=== PATIENT | female | born 1935 | race Caucasian/White ===

== ENCOUNTER → 2023-08-13 08:23 | Outpatient (REF) | payer MEDICARE, BC, SELFPAY ==
[2023-08-13 09:53] LABS: AST (SGOT) 25 U/L (14-36); Albumin 4.4 g/dl (3.5-5.0); Alkaline Phosphatase 68 U/L (38-126); Blood Urea Nitrogen 20 mg/dl (7-17); Calcium 10.2 mg/dl (8.4-10.2); Carbon Dioxide 19 mmol/L (22-30); Chloride 105 mmol/L (98-107); Glucose 167 mg/dl (70-99); HDL Cholesterol 46 mg/dl; LDL Cholesterol, Calculated 147 mg/dl; Potassium 4.4 mmol/L (3.5-5.1); Sodium 135 mmol/L (135-145); Total Bilirubin 0.9 mg/dl (0.2-1.3); Total Cholesterol 272 mg/dl (50-199); Total Protein 7.5 g/dl (6.3-8.2); Triglyceride 397 mg/dl (10-149); Very Low Density Lipoprotein 79 mg/dl (0-30); eGFR > 60.00
[2023-08-13 09:57] LABS: ALT (SGPT) 18 U/L (0-35)
[2023-08-13 11:20] LABS: Digoxin < 0.4 ng/ml (0.8-2.0)
[2023-08-13 12:23] LABS: Glycohemoglobin (HgbA1c) 7.4 % (4.0-5.6)
[2023-08-13 13:44] LABS: Microalbumin, Random Urine > 57.0 mg/dl (0.6-1.7)
== END ==
LOC: REG 08:23
PROVIDERS: ATTENDING PHYSICIAN Internal Medicine
DX: E11.9 Type 2 diabetes mellitus without complications (principal); I10 Essential (primary) hypertension; I48.21 Permanent atrial fibrillation
CPT/HCPCS: 36415; 80053; 80061; 80162; 82043; 82570; 83036

== ENCOUNTER → 2023-10-06 12:16 | Outpatient (REF) | payer MEDICARE, BC, SELFPAY ==
[2023-10-06 14:17] LABS: Blood Urea Nitrogen 21 mg/dl (7-17)
== END ==
LOC: REG 12:16
PROVIDERS: ATTENDING PHYSICIAN Radiology Radiation Oncology; FAMILY PHYSICIAN Internal Medicine
DX: C50.912 Malignant neoplasm of unspecified site of left female breast (principal); Z17.0 Estrogen receptor positive status [ER+]
CPT/HCPCS: 36415; 82565; 84520

== ENCOUNTER → 2024-03-13 08:38 | Outpatient (REF) | payer MEDICARE, BC, SELFPAY ==
[2024-03-13 10:33] LABS: Glycohemoglobin (HgbA1c) 7.5 % (4.0-5.6)
[2024-03-13 10:52] LABS: ALT (SGPT) 18 U/L (0-35); AST (SGOT) 22 U/L (14-36); Albumin 4.6 g/dl (3.5-5.0); Alkaline Phosphatase 64 U/L (38-126); Blood Urea Nitrogen 16 mg/dl (7-17); Calcium 10.8 mg/dl (8.4-10.2); Carbon Dioxide 19 mmol/L (22-30); Chloride 102 mmol/L (98-107); Glucose 195 mg/dl (70-99); HDL Cholesterol 53 mg/dl; Potassium 4.4 mmol/L (3.5-5.1); Sodium 140 mmol/L (135-145); Total Bilirubin 0.9 mg/dl (0.2-1.3); Total Cholesterol 272 mg/dl (50-199); Total Protein 7.5 g/dl (6.3-8.2); eGFR > 60.00
[2024-03-13 10:58] LABS: Triglyceride 433 mg/dl (10-149)
[2024-03-13 11:50] LABS: LDL Cholesterol, Direct 130 mg/dl
== END ==
LOC: REG 08:38
PROVIDERS: ATTENDING PHYSICIAN Internal Medicine
DX: E11.9 Type 2 diabetes mellitus without complications (principal); I10 Essential (primary) hypertension
CPT/HCPCS: 36415; 80053; 80061; 83036; 83721

== ENCOUNTER 2024-06-19 11:13 | Outpatient (RCR) | payer MEDICARE, BC, SELFPAY | END 2024-06-19 23:59 | disposition home or self-care (01) | LOC: RPT 11:13 | PROVIDERS: ATTENDING PHYSICIAN Nurse Practitioner Family; FAMILY PHYSICIAN Internal Medicine | DX: R26.89 Other abnormalities of gait and mobility (principal); Z91.81 History of falling; Z73.6 Limitation of activities due to disability | CPT/HCPCS: 97110; 97112; 97162 ==

== ENCOUNTER 2024-07-05 13:26 | Outpatient (RCR) | payer MEDICARE, BC, SELFPAY | END 2024-07-06 07:30 | disposition home or self-care (01) | LOC: RPT 13:26 | PROVIDERS: ATTENDING PHYSICIAN Nurse Practitioner Family; FAMILY PHYSICIAN Internal Medicine | DX: R26.89 Other abnormalities of gait and mobility (principal); Z73.6 Limitation of activities due to disability; Z91.81 History of falling; M79.605 Pain in left leg; M79.604 Pain in right leg | CPT/HCPCS: 97110 ==

== ENCOUNTER → 2024-07-19 11:02 | Outpatient (REF) | payer MEDICARE, BC, SELFPAY ==
[2024-07-19 12:09] LABS: % Basophils 1.5 % (0-2); % Eosinophils 1.7 % (0-6); % Immature Granulocytes 0.5 % (0-0.5); % Lymphocytes 16.2 % (20.5-51.1); % Monocytes 6.5 % (1.7-9.3); % Neutrophils 73.6 % (42.2-75.2); Absolute Basophils 0.1 10^3/uL (0-0.2); Absolute Eosinophils 0.2 10^3/uL (0-0.7); Absolute Immature Granulocytes 0.1 10^3/uL (0-0.05); Absolute Lymphocytes 1.5 10^3/uL (1.2-3.4); Absolute Monocytes 0.6 10^3/uL (0.1-0.6); Hematocrit 44.9 % (37.0-47.0); Hemoglobin 15.1 g/dL (12.0-16.0); Mean Corp Hgb Conc. 33.6 g/dL (33.0-37.0); Mean Corpuscular Hgb 29.2 pg (27.0-31.0); Mean Corpuscular Volume 86.8 fL (81.0-99.0); Mean Platelet Volume 10.3 fL (7.4-10.4); Nucleated Red Blood Cells % 0 %; Platelet Count 305 10^3/uL (130-400); Red Blood Cell Count 5.17 10^6/uL (4.20-5.40); Red Cell Dist. Width 13.2 % (11.5-14.5); White Blood Cell Count 9.5 10^3/uL (4.8-10.8)
[2024-07-19 14:31] LABS: Glycohemoglobin (HgbA1c) 7.6 % (4.0-5.6)
[2024-07-19 14:58] LABS: ALT (SGPT) 18 U/L (0-35); AST (SGOT) 28 U/L (14-36); Albumin 4.7 g/dl (3.5-5.0); Alkaline Phosphatase 67 U/L (38-126); Blood Urea Nitrogen 14 mg/dl (7-17); Calcium 9.8 mg/dl (8.4-10.2); Carbon Dioxide 27 mmol/L (22-30); Chloride 98 mmol/L (98-107); Glucose 175 mg/dl (70-99); HDL Cholesterol 47 mg/dl; LDL Cholesterol, Calculated 167 mg/dl; Potassium 4.6 mmol/L (3.5-5.1); Sodium 138 mmol/L (135-145); Total Bilirubin 1.1 mg/dl (0.2-1.3); Total Cholesterol 288 mg/dl (50-199); Triglyceride 372 mg/dl (10-149); Very Low Density Lipoprotein 74 mg/dl (0-30); eGFR > 60.00
[2024-07-19 16:23] LABS: TSH 3.41 uIU/ml (0.47-4.68)
[2024-07-19 17:07] LABS: Folate > 20.0 ng/ml (2.76-20); Vitamin B12 765 pg/ml (239-931)
[2024-07-19 18:26] LABS: Microalbumin, Random Urine > 57.0 mg/dl (0.6-1.7)
== END ==
LOC: REG 11:02
PROVIDERS: ATTENDING PHYSICIAN Internal Medicine
DX: E11.9 Type 2 diabetes mellitus without complications (principal); I10 Essential (primary) hypertension; R53.82 Chronic fatigue, unspecified; R41.3 Other amnesia
CPT/HCPCS: 36415; 80053; 80061; 82043; 82570; 82607; 82746; 83036; 84443; 85025

== ENCOUNTER 2024-10-06 18:10 | Emergency (ER) | payer MEDICARE, BC, SELFPAY ==
[2024-10-06 18:13] VITALS: BP 163/98
[2024-10-06 21:12] VITALS: BMI 26.6
[2024-10-06 21:19] VITALS: BP 159/98
[2024-10-06 22:01] VITALS: BP 182/93
--- NOTE | 2024-10-06 22:40 | ED.GENMED ---
History of Present Illness
General
Chief Complaint: Fall
Source: patient and family (Daughter at bedside)
Exam Limitations: none
Time Seen by Provider: 10/06/24 22:01
Nursing documentation reviewed up to this point in time: agreed with
History of Present Illness
History of Present Illness:
This is an 89-year-old woman who resides in independent living apartment at [facility]. She has history of ambulatory dysfunction utilizes walker. While getting up out of bed tonight she admits that she turned quickly, lost her balance and fell
onto her buttocks next to her bed. She denies head injury, denies loss of consciousness but was unable to stand without assistance. She required assistance to stand by EMS and arrives via EMS.
She has history of A-fib chronically maintained on Eliquis.
She complains of left buttock pain, worse with sitting, no radiation of the pain. She also noted mild left anterolateral distal rib discomfort as well as mild left posterior neck pain. No weakness or numbness, no headache, no dizziness nor
lightheadedness, no shortness of breath, no abdominal pain, no nausea nor vomiting.
Past History
Past History
ED Past Medical History: Arrthythmia (Atrial fibrillation), Cancer (Breast), GERD, HTN and Other (Osteoarthritis, cataracts)
ED Past Surgical History: Cholecystectomy, Orthopedic and Tonsilectomy
Social History
Tobacco: Non-smoker
Alcohol: None
Personal:
Living: assisted living
Family History
Family History: Other (Noncontributory)
Phy Exam
Physical Exam
Physical Exam:
TRAUMA EXAM:
VITAL SIGNS: Vital signs reviewed, cooperative
DISTRESS: No active disease
EYES: Pupils reactive, no orbital trauma
NOSE: No deformity or epistaxis
FACE AND SCALP: No scalp or facial trauma, external canals no blood
NECK: No midline bony tenderness. Mild tenderness left posterior paracervical region.
BACK: Back nontender, pelvis stable to compression. Minimal tenderness left mid buttock region.
RESPIRATORY: No distress, breath sounds normal, mild tenderness left anterolateral lower costal region. No crepitus nor palpable bony abnormality.
CARDIAC: No murmur, pulses equal and strong
ABDOMEN: Soft nontender bowel sounds normal
SKIN: Skin intact no bleeding, color normal
EXTREMITIES: Nontender, full range of motion without difficulty nor pain.
NEUROLOGICAL: Alert, oriented, no motor deficits
PSYCH: Mood affect normal
Course
Orders/Labs/Results
Orders:
Orders
10/06/24 21:45
CT Cervical Spine W/o Iv Contr Urgent
Comment:
Reason For Exam: fell, c/o neck pain
CT Head W/o Iv Contrast Urgent
Comment:
Reason For Exam: fell, c/o neck pain
10/06/24 22:12
Pelvis, 1 or 2 Views CR [CR Pelvis - 1 Or 2 Views ] Urgent
Comment:
Reason For Exam: fall onto buttock, L buttock pain
Ribs, Left 3 View W/PA Chest CR [CR Ribs-left 3 Vw W/pa Chest] Urgent
Comment:
Reason For Exam: fall, left ant/lat rib pain
Sacrum/Coccyx 2 View CR [CR Sacrum/coccyx Min 2 View] Urgent
Comment:
Reason For Exam: fall onto buttock, left sacral pain
10/06/24 23:06
Ambulate Patient-Treatment ONCE
10/06/24 23:08
Acetaminophen [Tylenol] 1,000 mg PO NOW STA
Vital Signs
Initial and Last Documented VS:
Initial Vital Signs
Temp Pulse Resp BP Pulse Ox
98.2 F 77 18 163/98 98
10/06/24 18:13 10/06/24 18:13 10/06/24 18:13 10/06/24 18:13 10/06/24 18:13
Last Documented Vital Signs
Temp Pulse Resp BP Pulse Ox
98.2 F 73 16 181/89 96
10/06/24 18:13 10/06/24 23:02 10/06/24 23:02 10/06/24 23:02 10/06/24 23:02
MDM/Problems Addressed
Differential Diagnosis Includes:
Patient suffered mechanical fall at home landing on her buttocks with left buttock pain.
Able to stand and bear weight with EMS assistance.
Although denies head injury, maintained on Eliquis. Due to advanced age, anticoagulant use, will check CT of the head.
Complains of mild left posterior neck pain, will check CT cervical spine. No focal neurodeficits.
Will check left rib series with chest, pelvis and sacral x-rays.
Chronic conditions affecting care: Arrhythmia (Atrial fibrillation)
*Radiology
Radiology exam reviewed: preliminary read by ED provider (Sacrum, pelvis, left rib series negative for fracture.) and radiology read reviewed (CT cervical spine and CT of the head showed no acute traumatic findings.)
*Pulse Oximetry
Patient hypoxic: no
*Critical Care Note
Total Time (30-74mins, 75-104mins- exclusive of procedures): Not Applicable
Update Note
Update Note:
23:15
X-rays and CTs unremarkable.
Patient ambulated with walker with steady unaided gait.
Medicated for pain left buttock with Tylenol
Will discharge to home with recommendation for prompt follow-up with PCP. Continue Tylenol as needed for pain, local ice. Continue to utilize walker for ambulation.
ED Attending Note
-
Portions of this chart may have been created with voice recognition software.� Occasional wrong word or��sound alike� substitutions may have occurred due to the inherent limitations of voice recognition software.
Discharge Plan
Departure
Patient Disposition: Home (Routine Discharge)
Date of Disposition: 10/06/24
Time of Disposition: 23:16
Patient with high blood pressure during this ER visit?: No
Condition: Good
Discharge Problem:
Contusion of left buttock
Instructions: Contusion (DC), Preventing falls in adults
Prescriptions:
No Action
levothyroxine 50 MCG tablet
50 mcg PO DAILY
multivitamin with folic acid [Tab-A-Mary] 1 TABLET tablet
1 tab PO DAILY
C,E,zinc,copper [id number] 1 CAP capsule
1 cap PO DAILY
escitalopram oxalate 5 MG tablet
0.5 mg PO DAILY@1800
acetaminophen 325 MG tablet
650 mg PO Q4HPRN PRN (Reason: mild pain/RAYO/temp> 100.4F) 0RF
cyanocobalamin (vitamin B-12) 1,000 MCG tablet
1,000 mcg PO DAILY
cholecalciferol (vitamin D3) 1,000 UNITS tablet
2,000 units PO DAILY
famotidine 40 MG tablet
40 mg PO DAILY
diltiazem HCl [Cardizem] 120 MG tablet
120 mg PO DAILY
zinc 10 MG tablet
10 mg PO DAILY
Patient Comments:
PTC unknown dose
apixaban [Eliquis] 5 MG tablet
5 mg PO BID Qty: 60 1RF
Rx Instructions:
Resume Thurs am
Referrals:
Mendoza Jones DO [Family Provider] - Call in 1-3 days for appt
Interventions
Interventions:
*Risk Screen - Suicide Last Done: 10/06/24 21:12
*General Assessment Last Done: 10/06/24 21:12
*Neglect/Abuse Screening Last Done: 10/06/24 21:12
*ED- Fall Risk Assessment Last Done: 10/06/24 21:12
*ED COVID-19 Vaccine History Last Done: 10/06/24 21:12
ED-Musculoskeletal Assessment Last Done: 10/06/24 21:12
ED- Neurological Assessment Last Done: 10/06/24 21:12
ED-Skin Assessment Last Done: 10/06/24 21:12
Discharge Date and Time
Print Language: MACEDONIAN
[2024-10-06 23:02] VITALS: BP 181/89
[2024-10-06] MEDS: TYLENOL 1000 MG PO (23:19)
== END 2024-10-06 23:33 | disposition home or self-care (01) ==
LOC: EMR 18:10
PROVIDERS: EMERGENCY PHYSICIAN Emergency Medicine; FAMILY PHYSICIAN Internal Medicine
DX: S30.0XXA Contusion of lower back and pelvis, initial encounter (principal); W06.XXXA Fall from bed, initial encounter; I48.91 Unspecified atrial fibrillation; I10 Essential (primary) hypertension; Z79.01 Long term (current) use of anticoagulants; Z85.3 Personal history of malignant neoplasm of breast; Z90.49 Acquired absence of other specified parts of digestive tract
CPT/HCPCS: 99284; 70450; 71101; 72125; 72170; 72220

== ENCOUNTER → 2024-10-12 11:09 | Outpatient (REF) | payer MEDICARE, BC, SELFPAY ==
[2024-10-12 12:40] LABS: Blood Urea Nitrogen 14 mg/dl (7-17); Calcium 9.7 mg/dl (8.4-10.2); Carbon Dioxide 24 mmol/L (22-30); Chloride 103 mmol/L (98-107); Digoxin 0.5 ng/ml (0.8-2.0); Glucose 162 mg/dl (70-99); Potassium 4.2 mmol/L (3.5-5.1); Sodium 139 mmol/L (135-145); eGFR > 60.00
== END ==
LOC: OLABMERCHI 11:09
PROVIDERS: ATTENDING PHYSICIAN Internal Medicine Cardiovascular Disease
DX: I48.21 Permanent atrial fibrillation (principal); I10 Essential (primary) hypertension
CPT/HCPCS: 36415; 80048; 80162

== ENCOUNTER 2024-11-13 15:31 | Inpatient (IN) | payer MEDICARE, BC, SELFPAY ==
[2024-11-13] VITALS (11 sets, daily range): BP systolic 127–176; BP diastolic 77–116; BMI 26.0
[2024-11-13 11:01] LABS: % Basophils 1.2 % (0-2); % Eosinophils 1.3 % (0-6); % Immature Granulocytes 0.7 % (0-0.5); % Lymphocytes 12.1 % (20.5-51.1); % Monocytes 5.9 % (1.7-9.3); % Neutrophils 78.8 % (42.2-75.2); Absolute Basophils 0.2 10^3/uL (0-0.2); Absolute Eosinophils 0.2 10^3/uL (0-0.7); Absolute Immature Granulocytes 0.1 10^3/uL (0-0.05); Absolute Lymphocytes 1.5 10^3/uL (1.2-3.4); Absolute Monocytes 0.7 10^3/uL (0.1-0.6); Absolute Neutrophils 9.7 10^3/uL (1.4-6.5); Hematocrit 39.4 % (37.0-47.0); Hemoglobin 13.6 g/dL (12.0-16.0); Mean Corp Hgb Conc. 34.5 g/dL (33.0-37.0); Mean Corpuscular Hgb 30.3 pg (27.0-31.0); Mean Corpuscular Volume 87.8 fL (81.0-99.0); Mean Platelet Volume 10.8 fL (7.4-10.4); Nucleated Red Blood Cells % 0 %; Platelet Count 271 10^3/uL (130-400); Red Blood Cell Count 4.49 10^6/uL (4.20-5.40); Red Cell Dist. Width 13.8 % (11.5-14.5); White Blood Cell Count 12.3 10^3/uL (4.8-10.8)
[2024-11-13 11:03] LABS: ALT (SGPT) 15 U/L (0-35); AST (SGOT) 26 U/L (14-36); Alkaline Phosphatase 63 U/L (38-126); Blood Urea Nitrogen 17 mg/dl (7-17); Carbon Dioxide 27 mmol/L (22-30); Chloride 106 mmol/L (98-107); Estimated Creatinine Clearance 39 ml/min; Glucose 187 mg/dl (70-99); Magnesium 1.8 mg/dl (1.6-2.3); Potassium 4.4 mmol/L (3.5-5.1); Sodium 139 mmol/L (135-145); Total Bilirubin 1.8 mg/dl (0.2-1.3); Total Protein 7.4 g/dl (6.3-8.2); eGFR > 60.00
[2024-11-13 11:05] LABS: INR 1.47; PT 18.1 Sec (11.4-14.6)
[2024-11-13 11:06] LABS: APTT 39.1 Sec (23.4-35.0)
[2024-11-13 11:37] LABS: Troponin I 0.687 ng/ml
[2024-11-13 12:11] LABS: Digoxin 1.3 ng/ml (0.8-2.0)
[2024-11-13 12:25] LABS: NT-proBNP 2820 pg/ml
--- NOTE | 2024-11-13 14:14 | ED.GENMED ---
History of Present Illness
General
Chief Complaint: Weakness
Source: patient
Time Seen by Provider: 11/13/24 11:43
History of Present Illness
History of Present Illness:
89-year-old female who presents after she began to feel weak and lightheaded. Patient states that she is really not able to answer any further but that she just did not feel well. She has a history of atrial fibrillation. Patient on my evaluation
denies chest pain. Does admit she has had a little bit of shortness of breath and a little bit of cough. No reported fevers. Patient is anticoagulated
Past History
Past History
ED Past Medical History: Arrthythmia (Atrial fibrillation), Cancer (Breast), GERD, HTN and Other (Osteoarthritis, cataracts)
ED Past Surgical History: Cholecystectomy, Orthopedic and Tonsilectomy
Social History
Tobacco: Non-smoker
Alcohol: None
Personal:
Living: assisted living
Family History
Family History: Other (Noncontributory)
Phy Exam
Physical Exam
Physical Exam:
CONSTITUTIONAL Patient alert and oriented to person, place and time. Well-appearing. Vital signs reviewed.
HEAD atraumatic, normocephalic.
EYES eyelids normal to inspection, Extraocular muscles intact, Conjunctiva normal, Sclera normal.
NECK normal range of motion, Trachea midline, no jugular venous distention.
RESPIRATORY CHEST No respiratory distress noted, Chest expansion equal, Bilateral breath sounds clear.
CARDIOVASCULAR irregularly irregular, Heart sounds normal.
ABDOMEN abdomen nontender, Bowel sounds normal. No distention.
BACK normal inspection, no obvious deformities
UPPER EXTREMITY range of motion normal, Motor strength normal, no cyanosis, no edema.
LOWER EXTREMITY range of motion normal, Motor strength normal, no cyanosis, no edema.
NEURO Speech normal, No focal motor deficits, Cranial Nerves intact to screening exam.
SKIN skin warm, dry, and normal in color.
Course
Orders/Labs/Results
Orders:
Orders
11/13/24 10:40
EKG [Electrocardiogram (*1)] Urgent
Reason for Study: Vertigo / Dizzy
EKG- Treatment ONCE
11/13/24 10:41
Complete Blood Count/With Diff Urgent
Comprehensive Metabolic Panel Urgent
Digoxin Urgent
Magnesium Urgent
NT-proBNP Urgent
Comment: ADD ON
PTT Urgent
Prothrombin Time Urgent
Troponin I Urgent
11/13/24 11:49
Add On- LAB Urgent
Tests Added?: Dig level
11/13/24 11:51
Add On- LAB Urgent
Tests Added?: BNP
CR Chest - 2 Views Urgent
Comment:
Reason For Exam: weakness, hypoxia
11/13/24 14:10
Urinalysis Reflex To Culture Urgent
Azithromycin 500 mg/250 ml [Zithromax Infusion] 500 mg in 250 ml IV NOW
CefTRIAXone [Rocephin] 1,000 mg IV NOW STA
11/13/24 14:15
Lactic Acid Q4H
Comment: CANCEL 2nd LACTIC ACID IF 1st LACTIC ACID IS LESS THAN 2
Blood Culture Q30M
SHO Source: Blood/Venous
Specimen Description:
11/13/24 14:45
Blood Culture Q30M
SHO Source: Blood/Venous
Specimen Description:
11/13/24 18:15
Lactic Acid Q4H
Comment: CANCEL 2nd LACTIC ACID IF 1st LACTIC ACID IS LESS THAN 2
Abnormal Lab Results
11/13/24
10:41
WBC 12.3 H 10^3/uL
(4.8-10.8)
MPV 10.8 H fL
(7.4-10.4)
Abs Immat Gran (auto) 0.1 H 10^3/uL
(0-0.05)
Absolute Neuts (auto) 9.7 H 10^3/uL
(1.4-6.5)
Absolute Monos (auto) 0.7 H 10^3/uL
(0.1-0.6)
Immature Gran % 0.7 H %
(0-0.5)
Neutrophils % 78.8 H %
(42.2-75.2)
Lymphocytes % 12.1 L %
(20.5-51.1)
PT 18.1 H Sec
(11.4-14.6)
APTT 39.1 H Sec
(23.4-35.0)
Glucose 187 H mg/dl
(70-99)
Total Bilirubin 1.8 H mg/dl
(0.2-1.3)
Troponin I 0.687 H* ng/ml
11/13/24 10:41
11/13/24 10:41
Vital Signs
Initial and Last Documented VS:
Initial Vital Signs
Temp Pulse Resp BP Pulse Ox
97.6 F 85 17 151/93 95
11/13/24 10:41 11/13/24 10:41 11/13/24 10:41 11/13/24 10:41 11/13/24 10:41
Last Documented Vital Signs
Temp Pulse Resp BP Pulse Ox
97.6 F 66 18 152/89 93
11/13/24 10:41 11/13/24 11:45 11/13/24 11:45 11/13/24 11:00 11/13/24 11:45
MDM/Problems Addressed
Differential Diagnosis Includes:
ACS, UTI, pneumonia, viral syndrome, electrolyte imbalance, renal failure
MDM/Problems Addressed:
NSTEMI, hypoxia
*Radiology
Radiology exam reviewed: radiology read reviewed
*Pulse Oximetry
Patient hypoxic: yes
*EKG
Interpreted by ED Provider?: Yes
Interpretation: abnormal
Rate: normal
Rhythm: a-fib
Ischemia: non-specific ST changes
*Propellant Assembler Interpretation
Rate: normal
Interpretation: abnormal
Rhythm: a-fib
*Critical Care Note
Total Time (30-74mins, 75-104mins- exclusive of procedures): Not Applicable
Data Reviewed
Review of Other/Old Records Reveals: Testing (Echocardiogram from August 2021 reviewed)
Source: patient
Prescriptions/Medications Considered But Not Given:
Considered heparin however already on Eliquis.
Patient Management
Discussion with other providers: Hospitalist and Diesel Instructor (Case discussed with cardiology)
Escalation/DeEscalation of care consider admission/obs:
89-year-old female presents with vague symptoms. Mostly just reports weakness. She denies chest pain. She denies cough. No fevers. Chest x-ray noted but question whether this is more related to heart failure as she does not have any other
secondary signs of pneumonia. Already on Eliquis. Will repeat troponin. Admit. Case discussed with cardiology.
ED Attending Note
-
Portions of this chart may have been created with voice recognition software.� Occasional wrong word or��sound alike� substitutions may have occurred due to the inherent limitations of voice recognition software.
Discharge Plan
Departure
Patient Disposition: Admit
Date of Disposition: 11/13/24
Time of Disposition: 14:27
Admit to: Telemetry
Presentation/result/management discussed w/ accepting MD/DO: Hospitalist
Discharge Problem:
Weakness, Non-ST elevation NC (NSTEMI)
Prescriptions:
No Action
levothyroxine 50 MCG tablet
50 mcg PO DAILY
multivitamin with folic acid [Tab-A-Mary] 1 TABLET tablet
1 tab PO DAILY
cholecalciferol (vitamin D3) 1,000 UNITS tablet
2,000 units PO DAILY
famotidine 40 MG tablet
40 mg PO HS
Eliquis 5 MG tablet
5 mg PO BID Qty: 60 1RF
Rx Instructions:
Resume Thurs am
buspirone [BuSpar] 5 mg Tablet
5 mg PO BID
acetaminophen [Tylenol] 325 mg Tablet
650 mg PO Q6HPRN PRN (Reason: mild pain)
midodrine 5 mg Tablet
5 mg PO TID
diltiazem HCl 120 mg Capsule,Extended Release 12 Hr
120 mg PO BID
exemestane 25 mg Tablet
25 mg PO DAILY
digoxin 125 mcg (0.125 mg) Tablet
125 mcg PO DAILY
escitalopram oxalate [Lexapro] 10 mg Tablet
10 mg PO DAILY
Levemir FlexPen 100 unit/mL (3 mL) Insulin Pen
20 unit SC DAILY
Creon 36,000-114,000- 180,000 unit Capsule,Delayed Release(Dr/Ec)
2 cap PO AC
Creon 36,000-114,000- 180,000 unit Capsule,Delayed Release(Dr/Ec)
2 cap PO DAILYPRN PRN (Reason: with a snack)
Referrals:
Tejinder Rosenbaum MD [Family Provider] -
Interventions
Interventions:
*Risk Screen - Suicide Last Done: 11/13/24 10:41
*General Assessment Last Done: 11/13/24 10:41
*Neglect/Abuse Screening Last Done: 11/13/24 10:41
*ED- Fall Risk Assessment Last Done: 11/13/24 10:41
*ED COVID-19 Vaccine History Last Done: 11/13/24 10:41
ED- Cardiac Assessment Last Done: 11/13/24 10:41
ED- Neurological Assessment Last Done: 11/13/24 10:41
ED- Pulmonary Assessment Last Done: 11/13/24 10:41
Discharge Date and Time
Print Language: UKRAINIAN
[2024-11-13 14:38] LABS: Lactic Acid 1.3 mmol/L (0.7-2.0)
--- NOTE | 2024-11-13 14:41 | HPS.HSE ---
Family Physician
-
Family Physician: Tejinder Rosenbaum MD
Chief Complaint
-
weak and lightheaded.
History of Present Illness
I could not get any information from the patient report she felt unwell
Information gathered by chart review and speaking with the ER staff.
HPI
89F Non smoker PMH significant for PA-Fib, chr Eliquis IDDM, anxiety, hypothyroidism and HTN pw feel weak and lightheaded. - pw weaknes and lighheaded
- she is really not able to answer any further but that she just did not feel well.
- she has had a little bit of shortness of breath and a little bit of cough.
- No reported fevers.
ROS
denies chest pain.
Medical History
Past Medical History
Past Medical History: Reports Arrhythmia (Prx AF on Eliquis ), Cancer (DCIS L Breast), HTN, Hypothyroidism, IDDM and Psychiatric (Generalized Anxiety / Depression)
Past Surgical History: Reports Cholecystectomy, Orthopedic (Bilateral TKA) and Other (Left Lumpectomy, DCIS L Breast)
Additional Past Surgical History:
Bilateral Cataract Extractions
Social History
Tobacco: Non-smoker
Alcohol: Occasional
Family History
Family History: Not pertinent
Allergies / Home Medications
Allergies reflects when Allergies were last updated in [employer].
Home Medications with original date entered in [employer]
Allergy/Medication List:
Allergies
Allergy/AdvReac Type Severity Reaction Status Date / Time
oxycodone HCl Allergy nausea Verified 05/01/21 07:15
[From OxyContin] vomiting
Latex Allergy Rash Uncoded 05/01/21 07:15
Home Medications
levothyroxine 50 mcg tablet 50 mcg PO DAILY Thyroid 11/28/19
multivitamin with folic acid 400 mcg tablet (Tab-A-Mary) 1 tab PO DAILY Supplement 11/28/19
cholecalciferol (vitamin D3) 25 mcg (1,000 unit) tablet 2,000 units PO DAILY 05/01/21
apixaban 5 mg tablet (Eliquis) 5 mg PO BID #60 tabs 10/29/21
famotidine 40 mg tablet 40 mg PO HS 10/29/21
acetaminophen 325 mg tablet (Tylenol) 650 mg PO Q6HPRN PRN mild pain 11/13/24
buspirone 5 mg tablet 5 mg PO BID 11/13/24
digoxin 125 mcg (0.125 mg) tablet 125 mcg PO DAILY 11/13/24
diltiazem HCl 120 mg capsule,extended release 12 hr 120 mg PO BID 11/13/24
escitalopram oxalate 10 mg tablet (Lexapro) 10 mg PO DAILY 11/13/24
exemestane 25 mg tablet 25 mg PO DAILY 11/13/24
insulin detemir U-100 100 unit/mL (3 mL) subcutaneous pen 20 unit SC DAILY 11/13/24
bpjvhl-wevhlmwg-zofdqcb 36,000-114,000-180,000 unit capsule,delay rel (Creon) 2 cap PO AC 11/13/24
vfpphg-clazrdag-ezysbaw 36,000-114,000-180,000 unit capsule,delay rel (Creon) 2 cap PO DAILYPRN PRN with a snack 11/13/24
midodrine 5 mg tablet 5 mg PO TID 11/13/24
Review of Systems
-
Constitutional: Reports Fatigue
EENT: Reports No Symptoms
Respiratory: Reports Other (mild sob)
Cardiac: Reports No Symptoms; Denies Chest Pain or Palpitations
Abdomen/GI: Reports No Symptoms
: Reports No Symptoms
Musculoskeletal: Reports No Symptoms
Skin: Reports No Symptoms
Neurological: Reports No Symptoms
Endocrine: Reports No Symptoms
Hematologic/Lymphatic: Reports No Symptoms
Psych: Reports No Symptoms
Physical Exam
Vital Signs
Vital Signs
Temp Pulse Resp BP Pulse Ox
97.6 F 66 18 152/89 93
11/13/24 10:41 11/13/24 11:45 11/13/24 11:45 11/13/24 11:00 11/13/24 11:45
Physical Exam
General: Well Developed, Well Nourished and No Apparent Distress
HEENT: NormoCephalic, Moist mucous membranes and Atraumatic
Respiratory: Clear
Cardiac: S1/S2 and Regular Rhythm; No Murmur or Rub
GI: Soft, Non Tender, Non Distended and Normal Bowel Sounds; No Organomegaly
Rectal: Deferred by Provider
Musculoskeletal: No Clubbing, No Cyanosis and No Edema
Skin: No Rash
Neuro: Nonfocal/grossly intact
Laboratory Results
-
11/13/24 10:41
11/13/24 10:41
Laboratory Results
PT 18.1 Sec (11.4-14.6) H 11/13/24 10:41
INR 1.47 11/13/24 10:41
APTT 39.1 Sec (23.4-35.0) H 11/13/24 10:41
Lactic Acid 1.3 mmol/L (0.7-2.0) 11/13/24 14:17
Total Bilirubin 1.8 mg/dl (0.2-1.3) H 11/13/24 10:41
AST 26 U/L (14-36) 11/13/24 10:41
ALT 15 U/L (0-35) 11/13/24 10:41
Alkaline Phosphatase 63 U/L (38-126) 11/13/24 10:41
Troponin I 0.687 ng/ml H* 11/13/24 10:41
Data Reviewed
-
Diagnostic Radiology: Report Reviewed by me
Medical Tests (Nuc Med, Echo, EKG etc): Report Reviewed by me
Lab Data: Labs Reviewed by me
Old Records: Reviewed
Impression/Plan
-
Vital Signs
Temp Pulse Resp BP Pulse Ox
97.6 F 66 18 152/89 93
11/13/24 10:41 11/13/24 11:45 11/13/24 11:45 11/13/24 11:00 11/13/24 11:45
Laboratory Tests
11/13/24 11/13/24
10:41 14:27
Troponin I 0.687 H* Pending
Ang-H-Abudfvgjwft Pept 2820
Abnormal Lab Results
11/13/24 11/13/24
10:41 14:27
WBC 12.3 H
MPV 10.8 H
Abs Immat Gran (auto) 0.1 H
Absolute Neuts (auto) 9.7 H
Absolute Monos (auto) 0.7 H
Immature Gran % 0.7 H
Neutrophils % 78.8 H
Lymphocytes % 12.1 L
PT 18.1 H
APTT 39.1 H
Glucose 187 H
Total Bilirubin 1.8 H
Troponin I 0.687 H* 0.841 H*
LA pending
UA pending
BCx sent
EKG report
ATRIAL FIBRILLATION
MINIMAL VOLTAGE CRITERIA FOR LVH, MAY BE NORMAL VARIANT ( Vaughn product )
ST and T WAVE ABNORMALITY, CONSIDER ANTEROLATERAL ISCHEMIA
ABNORMAL ECG
WHEN COMPARED WITH ECG OF 02-DEC-2020 14:16,
ST MORE DEPRESSED LATERAL LEADS
QT HAS SHORTENED
Confirmed by ANNELISE DAWKINS MD ([id number]) on 11/13/2024 1:21:00 PM
08/20/21 TTE
LV ejection fraction is 55% by Machado's biplane method of discs.
Mild septal hypertrophy. Diastolic function indeterminate due to atrial fibrillation.
Mildly thickened mitral valve leaflets. Posterior MAC. mitral valve opens normally.
Mild mitral regurgitation.
Thickened, trileaflet aortic valve with normal leaflet excursion.
Mild aortic regurgitation.
Since echocardiogram November 2019, there is no significant change. Patient is now in atrial fibrillation.
CXR
Mild bibasilar pneumonia and trace pleural effusions.
Last hospitalist admission: 12/02/2020 -12/03/2020
DISCHARGE DIAGNOSES:
1. Generalized weakness.
2. Bilateral knee osteoarthritis.
3. Paroxysmal atrial fibrillation.
4. Pancreatic cyst with pancreatic ductal dilation.
ASSESSMENT & PLAN
Pending Rx reconciliation
Weakness
- Unclear origin of these symptoms.
- Likely multifactorial - CHF flare vs PNA vs others
- Check TFTs
- Check CRP to rule out PMR
- check Dig level
- PT/OT
CXR suggest mild bibasilar PNA and trace pleural effusions
DDX: PNA vs CHF flare
- afebrile
- Empiric IV CFTZ + Azithromycin ( IV --> PO )
- f/o clinical response
Elevated TPNI but no CP : DDX ; NIMI vs NSTEMI
Interval more depressed ST in lateral leads per EKG report
- Trend TPNI
- repeate EKG in AM
- on chr Eliquis
- DCA card consulted
Elevated proBNP - acute HFpEF ?
Prior LVEF 55
No prior HX CHF in the record
- ECHO in AM
- Trial fo Low dose IV Lasix 20 x 1 and f./u clical reponse
- f/u wt
In AF with control VR
HX Paroxysmal Atrial Fibrillation
- check Dig level
- Rate right around 60s bpm on Diltiazem CD 120 daily
- Continue current medications including Dilatiazemm CD and Eliquis.
- TLM monitor
Hypothyroidism
- Check TFTs as noted above.
- Continue current dose of levothyroxine for now.
Hypertension
- Stable.
- Continue outpatient medications with holding parameters.
IDDM
- c/w TEST PILOT Levemir
- add ISS low
Elevated Bili
- Unclear origin. Note that patient is s/p cholecystectomy in the past.
- LFts in AM
DVT Px: Eliquis
Code: DNR confirmed with patient at time of admission by daughter (Pharmacist)
IP TLM
[2024-11-13 15:11] LABS: Troponin I 0.841 ng/ml
[2024-11-13] MEDS: LASIX 20 MG IV (15:30)
[2024-11-13 17:07] LABS: Glucose - Point of Care 163 mg/dl (70-99)
[2024-11-13] MEDS: ZITHROMAX INFUSION 250 IV (18:11)
[2024-11-13] MEDS: ROCEPHIN 1000 MG IV (18:12)
[2024-11-13] MEDS: STERILE WATER FOR INJECTION 10 ML IV (18:12)
[2024-11-13] MEDS: ProAmatine PO (18:29)
[2024-11-13] MEDS: NOVOLOG FLEXPEN-LOW RESISTANCE 1 UNITS SC (18:36)
[2024-11-13 18:46] LABS: Troponin I 0.937 ng/ml
[2024-11-13] MEDS: TYLENOL 650 MG PO (19:52)
[2024-11-13] MEDS: ELIQUIS 5 MG PO (20:39)
[2024-11-13] MEDS: CARDIZEM SR 120 MG PO (20:39)
[2024-11-13] MEDS: PEPCID 20 MG PO (20:39)
[2024-11-13] MEDS: BUSPAR 5 MG PO (20:39)
[2024-11-13 21:01] LABS: Urine Albumin 2+ (Neg - Trace); Urine Bilirubin Negative (Negative); Urine Character Clear (Clear); Urine Color Yellow; Urine Glucose Negative (Negative); Urine Ketone Negative (Negative); Urine Leukocyte 2+ (Negative); Urine Nitrite Negative (Negative); Urine Occult Blood Negative (Negative); Urine Urobilinogen Negative (Neg - 1+)
[2024-11-13 21:13] LABS: Urine Red Blood Cell 0-2 /HPF (0-2); Urine Squamous Cell 0-2 /LPF (Few)
[2024-11-13 22:42] LABS: Glucose - Point of Care 125 mg/dl (70-99)
[2024-11-13 22:53] LABS: Troponin I 0.745 ng/ml
[2024-11-14] VITALS (7 sets, daily range): BP systolic 110–161; BP diastolic 65–82; PULSE 71; O2SAT 90; BMI 26.0
[2024-11-14] MEDS: TYLENOL 650 MG PO (00:01)
[2024-11-14] MEDS: SYNTHROID 50 MCG PO (06:13)
[2024-11-14 07:27] LABS: Hematocrit 37.4 % (37.0-47.0); Hemoglobin 12.9 g/dL (12.0-16.0); Mean Corp Hgb Conc. 34.5 g/dL (33.0-37.0); Mean Corpuscular Hgb 30.2 pg (27.0-31.0); Mean Corpuscular Volume 87.6 fL (81.0-99.0); Mean Platelet Volume 10.7 fL (7.4-10.4); Platelet Count 274 10^3/uL (130-400); Red Blood Cell Count 4.27 10^6/uL (4.20-5.40); Red Cell Dist. Width 13.6 % (11.5-14.5); White Blood Cell Count 10.7 10^3/uL (4.8-10.8)
[2024-11-14 07:58] LABS: ALT (SGPT) 13 U/L (0-35); AST (SGOT) 22 U/L (14-36); Albumin 3.8 g/dl (3.5-5.0); Alkaline Phosphatase 67 U/L (38-126); Blood Urea Nitrogen 20 mg/dl (7-17); Calcium 9.6 mg/dl (8.4-10.2); Carbon Dioxide 26 mmol/L (22-30); Chloride 104 mmol/L (98-107); Estimated Creatinine Clearance 44 ml/min; Glucose 160 mg/dl (70-99); HDL Cholesterol 36 mg/dl; LDL Cholesterol, Calculated 93 mg/dl; Sodium 139 mmol/L (135-145); Total Bilirubin 1.4 mg/dl (0.2-1.3); Total Cholesterol 175 mg/dl (50-199); Total Protein 6.9 g/dl (6.3-8.2); Triglyceride 230 mg/dl (10-149); Very Low Density Lipoprotein 46 mg/dl (0-30); eGFR > 60.00
[2024-11-14 07:59] LABS: Glucose - Point of Care 164 mg/dl (70-99)
[2024-11-14] MEDS: LANTUS 0.2 UNITS SC (08:25)
[2024-11-14] MEDS: NOVOLOG FLEXPEN-LOW RESISTANCE 1 UNITS SC ×3 (08:25→17:54)
--- NOTE | 2024-11-14 08:30 | CON.CAR ---
Addendum entered and electronically signed by Eliceo Mehta MD 11/14/24 15:29:
With elevated proBNP, worsening MR and increased estimated pulmonary pressures on echo we will attempt gentle IV diuresis with 20mg lasix daily
Addendum entered and electronically signed by Eliceo Mehta MD 11/14/24 10:54:
I saw and examined the patient.
The Nursery Technician's note was reviewed and I agree with the note.
Comment: Briefly, 89-year-old woman past medical history of permanent atrial fibrillation on Eliquis and orthostatic hypotension on midodrine who presented to emergency department reporting weakness and lightheadedness. Troponin was found to be
mildly elevated for which cardiology was consulted.
Patient was not reporting any chest discomfort based on documentation from the emergency department. And is resting comfortably at the time of my evaluation with no cardiac complaints.
ECG shows atrial fibrillation with nonspecific ST/T wave changes which may be consistent with digoxin effect
Troponin relatively flat: 0.69, 0.84, 0.94, 0.75. No need to trend further.
Check transthoracic echocardiogram to evaluate for development of cardiomyopathy or new regional wall motion abnormalities
Overall suspect nonischemic myocardial injury troponin elevation.
Management of antibiotics and treatment of possible pneumonia per primary service
Original Note:
Consultation
Consultation Request
Date/Time Consultation Requested: 11/13/2024
Date/Time Consultation Performed: 11/14/2024
Requesting Provider: ALLAN Barker
Performing Provider: Shelly Conley for Dr. Mehta
Medical History
-
History of Present Illness:
Patient is an 89-year-old female with history of permanent atrial fibrillation/flutter on chronic anticoagulation with Eliquis, hypertension, orthostatic hypotension chronically on midodrine, history of syncope, hypertriglyceridemia, breast cancer,
pancreatic mass, GERD, hypothyroidism, anxiety, type 2 diabetes and mild cognitive impairment who resides at [facility] presenting to emergency department 11/13/2024 with weakness, lightheadedness and complaint of 'feeling not well.'.
Patient also notes intermittent shortness of breath and worsening cough. Chest x-ray with bibasilar pneumonia and trace pleural effusions with WBC 12.3 and started on empiric antibiotics. EKG demonstrated atrial fibrillation with nonspecific ST-T
wave abnormality in anterior lateral leads. Initial troponin 0.687, peaked at 0.937. proBNP 2820. CRP 62.30. Cardiology being asked to see patient given abnormal troponin.
At time of this evaluation patient resting comfortably in bed. She offers no complaints. Currently denies chest pain, shortness of breath, dizziness, lightheadedness, orthopnea, PND
PMH:
Permanent atrial fibrillation/flutter
Chronic anticoagulation on Eliquis
Hypertension
Orthostatic hypotension chronically on midodrine
Syncope
Loop recorder/Linq monitor
Hypertriglyceridemia
Breast cancer status post lumpectomy radiation HRT with recurrence 11/08/2023
Pancreatic mass
GERD
Hypothyroidism
Anxiety
Mild cognitive impairment
Type 2 diabetes
Macular degeneration
History of MRSA infection
Past Medical History
Past Medical History: Other (See HPI)
Past Surgical History: Cardiac (Linq implant October 2021), Cholecystectomy, Orthopedic (Bunionectomy, bilateral knee replacements 2014) and Other (Bilateral cataract extractions 2018, left breast lumpectomy July 2020, left breast surgery October 2023)
Social History
Tobacco: Non-Smoker
Alcohol: Occasional
Drug: None
Living: Assisted Living ([facility])
Family History
Family History: Other (Father Stroke)
Allergies / Home Medications
Allergy/AdvReac Type Severity Reaction Status Date / Time
oxycodone HCl Allergy nausea Verified 05/01/21 07:15
[From OxyContin] vomiting
Latex Allergy Rash Uncoded 05/01/21 07:15
�Medication �Instructions �Recorded �Confirmed �Type
levothyroxine 50 mcg tablet 50 mcg PO DAILY Thyroid 11/28/19 11/13/24 History
multivitamin with folic acid 400 1 tab PO DAILY Supplement 11/28/19 11/13/24 History
mcg tablet (Tab-A-Mary)
cholecalciferol (vitamin D3) 25 2,000 units PO DAILY 05/01/21 11/13/24 History
mcg (1,000 unit) tablet
apixaban 5 mg tablet (Eliquis) 5 mg PO BID #60 tabs 10/29/21 11/13/24 Rx
famotidine 40 mg tablet 40 mg PO HS 10/29/21 11/13/24 History
acetaminophen 325 mg tablet 650 mg PO Q6HPRN PRN mild pain 11/13/24 11/13/24 History
(Tylenol)
buspirone 5 mg tablet 5 mg PO BID 11/13/24 11/13/24 History
digoxin 125 mcg (0.125 mg) tablet 125 mcg PO DAILY 11/13/24 11/13/24 History
diltiazem HCl 120 mg 120 mg PO BID 11/13/24 11/13/24 History
capsule,extended release 12 hr
escitalopram oxalate 10 mg tablet 10 mg PO DAILY 11/13/24 11/13/24 History
(Lexapro)
exemestane 25 mg tablet 25 mg PO DAILY 11/13/24 11/13/24 History
insulin detemir U-100 100 unit/mL 20 unit SC DAILY 11/13/24 11/13/24 History
(3 mL) subcutaneous pen
ceieyg-dbyhqfkv-ugzsnwh 2 cap PO AC 11/13/24 11/13/24 History
36,000-114,000-180,000 unit
capsule,delay rel (Creon)
mvaoco-znncyhaj-ycdygnm 2 cap PO DAILYPRN PRN with a snack 11/13/24 11/13/24 History
36,000-114,000-180,000 unit
capsule,delay rel (Creon)
midodrine 5 mg tablet 5 mg PO TID 11/13/24 11/13/24 History
Review of Systems
-
History Source: Patient
All other systems: Negative unless noted
Physical Exam
Vital Signs
Temp Pulse Resp BP Pulse Ox
97.9 F 74 18 139/68 97
11/14/24 03:38 11/14/24 03:38 11/14/24 03:38 11/14/24 03:38 11/14/24 03:38
GEN: No distress, awake, Ox3, sitting in bed comfortably
HEENT: supple, anicteric, mmm
LUNGS: CTA, no wheezes/rales
CV: Irregularly irregular, rate controlled, S1/S2, 1/6 syst murmur loudest at apex
ABD: soft, BS+, NT/ND
EXT: No edema, clubbing or cyanosis
NEURO: Poor recall otherwise nonfocal
SKIN: No rash, warm, dry, pink
Lab Results
11/14/24 06:49
11/14/24 06:49
Troponin I Cancelled 11/14/24 01:00
Wux-O-Echqjenhrqs Pept 2820 pg/ml 11/13/24 10:41
Impression / Plan
-
Family Physician: Tejinder Rosenbaum MD
Rn Iv Therapy: Cheikh Aldrich
Impression:
Presented 11/13/2024 with weakness, dizziness, lightheadedness and shortness of breath
Pneumonia
Abnormal troponin, peak 0.937
Permanent atrial fibrillation/flutter
Chronic anticoagulation on Eliquis
Hypertension
Orthostatic hypotension chronically on midodrine
Syncope
Loop recorder/Linq monitor
Hypertriglyceridemia
Breast cancer status post lumpectomy radiation HRT with recurrence 11/08/2023
Pancreatic mass
Mild cognitive impairment
Type 2 diabetes
GERD
Hypothyroidism
Anxiety
Macular degeneration
History of MRSA infection
Echo 08/20/2021: LVEF 55% (Machado's), Mild septal hypertrophy, Diastolic function indeterminate due to atrial fibrillation. nl RV. nl LA. nl RA. Mildly thickened MV leaflets, Posterior MAC, Mild MR. Mild AR. Mild TR, PASP 30 mmHg. Trace NJ (poorly
visualized). nl aorta.
Lexiscan nuclear stress test 04/10/2020: Normal perfusion. EF 67%
Carotid duplex 10/08/21: no hemodynamically significant stenosis > 50% bilaterally, mild atherosclerotic plaque noted bilaterally
Plan:
-Presented 11/13/2024 with weakness, dizziness, lightheadedness and general feeling of 'not feeling well.'
-Chest x-ray concerning for bilateral pneumonia with mild leukocytosis. Patient started on empiric antibiotics per primary.
- Abnormal troponin, initial 0.687. Peaked at 0.937. Patient currently denies chest pain. EKG with permanent atrial fibrillation flutter with ST-T wave abnormality in anterolateral leads which is similar to EKG from September 2024 in office. Suspect
nonischemic myocardial injury secondary to pneumonia.
-Check echocardiogram
-proBNP 2820. Weight at last office visit was 156.6 pounds which is similar to patient's current weight. Patient does not appear to be acutely volume overloaded on examination. Would hold on diuresis given history of orthostatic hypotension
-Permanent atrial fibrillation flutter with reasonable rate control. Continue diltiazem and digoxin. Digoxin level stable at 1.3. Continue anticoagulation with Eliquis. Hemoglobin stable
-Hypertension: Continue diltiazem.
-Patient is maintained on midodrine 5 mg twice daily for orthostatic hypotension. Change positions slowly
Discussed with patient and nursing
HPI 11/14/2024:
Patient is an 89-year-old female with history of permanent atrial fibrillation/flutter on chronic anticoagulation with Eliquis, hypertension, orthostatic hypotension chronically on midodrine, history of syncope, hypertriglyceridemia, breast cancer,
pancreatic mass, GERD, hypothyroidism, anxiety, type 2 diabetes and mild cognitive impairment who resides at [facility] presenting to emergency department 11/13/2024 with weakness, lightheadedness and complaint of 'feeling not well.'.
Patient also notes intermittent shortness of breath and worsening cough. Chest x-ray with bibasilar pneumonia and trace pleural effusions with WBC 12.3 and started on empiric antibiotics. EKG demonstrated atrial fibrillation with nonspecific ST-T
wave abnormality in anterior lateral leads. Initial troponin 0.687, peaked at 0.937. proBNP 2820. CRP 62.30. Cardiology being asked to see patient given abnormal troponin.
At time of this evaluation patient resting comfortably in bed. She offers no complaints. Currently denies chest pain, shortness of breath, dizziness, lightheadedness, orthopnea, PND
Data Reviewed
-
EKG: Report Reviewed by me, Discussed with Physician, Discussed with Nurse and Discussed with Patient
Radiology: Report Reviewed by me, Discussed with Physician, Discussed with Nurse and Discussed with Patient
Labs: Labs Reviewed by me, Discussed with Physician, Discussed with Nurse and Discussed with Patient
Old Records: Reviewed
[2024-11-14] MEDS: ProAmatine 5 MG PO ×3 (08:53→17:59)
[2024-11-14] MEDS: ZENPEP DELAYED RELEASE CAPSULE 2 CAPSULE PO ×3 (08:53→18:00)
[2024-11-14] MEDS: CARDIZEM SR 120 MG PO ×2 (08:54→20:14)
[2024-11-14] MEDS: VITAMIN D3 (cholecalciferol) 25 MCG PO (08:54)
[2024-11-14] MEDS: BUSPAR 5 MG PO ×2 (08:54→20:14)
[2024-11-14] MEDS: THERAGRAN 1 TABLET PO (08:55)
[2024-11-14] MEDS: ELIQUIS 5 MG PO ×2 (08:56→20:14)
[2024-11-14] MEDS: LEXAPRO 10 MG PO (08:56)
[2024-11-14 09:15] LABS: Glycohemoglobin (HgbA1c) 7.3 % (4.0-5.6)
[2024-11-14 11:28] LABS: Glucose - Point of Care 177 mg/dl (70-99)
[2024-11-14] MEDS: AROMASIN 25 MG PO (12:48)
[2024-11-14] MEDS: LANOXIN 125 MCG PO (12:48)
--- NOTE | 2024-11-14 14:24 | CM ---
CM reviewed chart, patient seen bedside, reports she is not feeling well and asking CM to return at a later time. Patient from [facility], per PT evaluation, patient ambulating 100 ft x 1 with RW and supervision, recommending home PT vs no needs.
Voicemail left for DON at [facility] to obtain patients PLOF. Patient PCP Tejinder Rosenbaum, pharmacy [facility] in [place]. CM will continue to follow for all discharge planning needs.
Plan; return to [facility] likely
--- NOTE | 2024-11-14 15:27 | W.PN.HOSP.TC ---
Today's Communication/Plan
-
Empiric antibiotics
Speech and swallow evaluation
CT scan of the head.
IV diuresis pending repeat echocardiogram.
PT eval
Assessment / Plan
Assessment / Plan
Impression:
Presentation with generalized fatigue, dizziness, lightheadedness and shortness of breath.
Bibasilar infiltrate right greater than left on the chest x-ray with minimal pleural effusion.
Abnormal cardiac markers including pro CHF BNP and troponin.
Other conditions:
Permanent atrial fibrillation/flutter.
Anticoagulation with Eliquis
Essential hypertension
Longstanding orthostatic hypotension requiring midodrine.
Chronic pancreatitis under surveillance for malignancy.
IDDM
History of breast carcinoma status postlumpectomy/HRT with recurrence 11/11.
GERD.
Hypothyroidism on replacement
Dementia? Vascular type.
Chronic ambulatory dysfunction
Plan:
Presentation with generalized fatigue, weakness, possibly dizziness
Patient with dementia with no focal findings on neurologic examination.
Prior CT imaging suggesting microvascular disease
CT scan of the head.
TSH with
Cortisol level.
Urinalysis noted history of infection
Bibasilar right greater than left infiltrate.
Differential diagnosis: Pneumonia, could not exclude aspiration given above history.
Mild leukocytosis improved since admission
Speech and swallow evaluation.
Aspiration precautions
Empiric antibiotics ceftriaxone/Zithromax covering community-acquired pathogens and possible aspiration
Concern for diastolic CHF exacerbation
Repeat echocardiogram pending.
Noted elevated pro CHF BNP
Likely non-NM troponin elevation as patient presents chest pain-free with no ischemic changes on ECG.
Gentle diuresis with assessment of daily weight and renal function
Permanent atrial fibrillation/flutter.
Rate control including digoxin, diltiazem
Anticoagulation with Eliquis
Orthostatic hypotension remains on midodrine.
IDDM
Update hemoglobin A1c.
Continue Lantus/basal bolus protocol
Continue serial Accu-Cheks
Hypothyroidism on replacement
Updated TSH pending.
CODE STATUS DNR.
Patient's daughter updated over the phone.
Anticipated Discharge: 24 - 48 hours
Subjective/Interval History
-
Date of Service: November 14, 2024
Objective Data
-
Labs:
Laboratory Results
11/14/24
06:49
WBC 10.7
Hgb 12.9
Hct 37.4
Plt Count 274
Sodium 139
Potassium 4.0
Chloride 104
Carbon Dioxide 26
BUN 20 H
Creatinine 0.8
Glucose 160 H
Calcium 9.6
Total Bilirubin 1.4 H
AST 22
ALT 13
Alkaline Phosphatase 67
Vital Signs:
Vital Signs
Temp Pulse Resp BP Pulse Ox
98.0 F 73 18 148/75 95
11/14/24 15:00 11/14/24 15:00 11/14/24 15:00 11/14/24 15:00 11/14/24 15:00
I&O
11/13/24 11/14/24 11/15/24
06:59 06:59 06:59
Intake Total 480 / 480
Balance 480 / 480
Physical Exam
-
General: Well Developed and No Apparent Distress
HEENT: Normocephalic, Atraumatic and Moist Mucous Membranes
Respiratory: Clear to Auscultation
Cardiac: Regular Rhythm and S1/S2; Negative Murmur, Rub or Gallop
GI: Soft, Nontender, Nondistended and Normal Bowel Sounds; Negative Organomegaly
Rectal: Deferred by Provider
Musculoskeletal: No Clubbing, No Cyanosis and No Edema
Skin: Negative Rash
Neuro: Nonfocal/Grossly Intact
--- NOTE | 2024-11-14 16:10 | PTOTSP ---
Dysphagia Evaluation
Oral and pharyngeal stages of swallowing are grossly within functional limits based on clinical bedside swallowing evaluation. Patient with acute on chronic dysphagia risk factors (i.e., acute PNA vs CHF flare; cognitive impairment, GERD).
Recommend:
1. Regular, Thin Liquids
2. Medications as best tolerated
3. Strategies: supervision given cognitive impairments, upright to 90 degrees, small single sips/bites, slow rate, reflux precautions
4. Video swallow study if concerned for silent aspiration. Otherwise will sign off.
[2024-11-14 16:27] LABS: Cortisol, Random 9.3 ug/dl; TSH 3.14 uIU/ml (0.47-4.68)
[2024-11-14 16:50] LABS: Glucose - Point of Care 191 mg/dl (70-99)
[2024-11-14] MEDS: STERILE WATER FOR INJECTION 10 ML IV (17:59)
[2024-11-14] MEDS: ZITHROMAX INFUSION 250 IV (17:59)
[2024-11-14] MEDS: ROCEPHIN 1000 MG IV (18:00)
[2024-11-14] MEDS: LASIX 20 MG IV (18:00)
[2024-11-14] MEDS: PEPCID 20 MG PO (21:14)
[2024-11-14 21:39] LABS: Glucose - Point of Care 144 mg/dl (70-99)
[2024-11-15] VITALS (7 sets, daily range): BP systolic 131–158; BP diastolic 71–83; PULSE 71; O2SAT 98; BMI 24.9
[2024-11-15] MEDS: SYNTHROID 50 MCG PO (05:55)
[2024-11-15 07:36] LABS: Glucose - Point of Care 153 mg/dl (70-99)
[2024-11-15] MEDS: NOVOLOG FLEXPEN-LOW RESISTANCE 1 UNITS SC ×3 (08:46→17:39)
[2024-11-15] MEDS: ZENPEP DELAYED RELEASE CAPSULE 2 CAPSULE PO ×3 (08:47→17:40)
[2024-11-15] MEDS: ELIQUIS 5 MG PO ×2 (08:48→20:23)
[2024-11-15] MEDS: LASIX 20 MG IV (08:49)
[2024-11-15] MEDS: THERAGRAN 1 TABLET PO (08:49)
[2024-11-15] MEDS: LEXAPRO 10 MG PO (08:49)
[2024-11-15] MEDS: AROMASIN 25 MG PO (08:49)
[2024-11-15] MEDS: ProAmatine 5 MG PO ×3 (08:49→17:41)
[2024-11-15] MEDS: BUSPAR 5 MG PO ×2 (08:49→20:23)
[2024-11-15] MEDS: CARDIZEM SR 120 MG PO (08:49)
[2024-11-15] MEDS: VITAMIN D3 (cholecalciferol) 25 MCG PO (08:49)
[2024-11-15] MEDS: LANTUS 0.2 UNITS SC (08:56)
--- NOTE | 2024-11-15 10:07 | W.PN.HOSP.TC ---
Today's Communication/Plan
-
ACTH stim test on 11/16
IV diuresis gentle 20 mg IV
Monitor urinary output
Follow renal function and daily weights
Assessment / Plan
Assessment / Plan
NAD, laying in bed
Scleral Anicteric
MMM
Hepatojugular reflex positive
Bibasilar crackle
RRR, S1/S2
Soft, NT, ND, BS+
Warm, Dry
AAOx3
Calm
Impression:
Presentation with generalized fatigue, dizziness, lightheadedness and shortness of breath.
Bibasilar infiltrate right greater than left on the chest x-ray with minimal pleural effusion.
Abnormal cardiac markers including pro CHF BNP and troponin.
Other conditions:
Permanent atrial fibrillation/flutter.
Anticoagulation with Eliquis
Essential hypertension
Longstanding orthostatic hypotension requiring midodrine.
Chronic pancreatitis under surveillance for malignancy.
IDDM
History of breast carcinoma status postlumpectomy/HRT with recurrence 11/11.
GERD.
Hypothyroidism on replacement
Dementia? Vascular type.
Chronic ambulatory dysfunction
Plan:
Presentation with generalized fatigue, weakness, possibly dizziness
Patient with dementia with no focal findings on neurologic examination.
Prior CT imaging suggesting microvascular disease
CT scan of the head.
TSH with 3.24
Cortisol level 9.3, therefore we will plan for ACTH stim test 11/16. I have a low clinical suspicion for adrenal insufficiency as there is no evidence of hyponatremia hypoglycemia hypothermia however she does feel fatigued therefore cannot
completely exclude with a cortisol of 9.3
Urinalysis noted history of infection
Bibasilar right greater than left infiltrate.
Differential diagnosis: Pneumonia, could not exclude aspiration given above history.
Mild leukocytosis improved since admission
Speech and swallow evaluation.
Aspiration precautions
Empiric antibiotics ceftriaxone/Zithromax covering community-acquired pathogens and possible aspiration
Acute on chronic HFpEF exacerbation with EF of 55 to 60%
2D echo 55 to 60% no regional motion reported with tricuspid regurgitation, worsening mitral regurgitation with a PASP 45-50
With the elevated BNP worsening MR and pulmonary pressure therefore gently IV diuresis with 20 mg IV Lasix per cardiology recommendation
Daily weights, keep K greater than 4, magnesium greater than 2, monitor urinary output
Permanent atrial fibrillation/flutter.
Rate control including digoxin, diltiazem
Anticoagulation with Eliquis
Orthostatic hypotension remains on midodrine.
IDDM
Update hemoglobin A1c.
Continue Lantus/basal bolus protocol
Continue serial Accu-Cheks
Hypothyroidism on replacement
Updated TSH pending.
CODE STATUS DNR.
Anticipated Discharge: > 48 hours
Subjective/Interval History
-
Date of Service: November 15, 2024
Seen and examined. No new complaints. No acute overnight events.
Continues to feel tired and weak
Objective Data
-
Vital Signs:
Vital Signs
Temp Pulse Resp BP Pulse Ox
98.1 F 75 16 149/77 93
11/15/24 07:30 11/15/24 07:30 11/15/24 07:30 11/15/24 07:30 11/15/24 07:30
I&O
11/14/24 11/15/24 11/16/24
06:59 06:59 06:59
Intake Total 480 / 480 1090 / 1090
Balance 480 / 480 1090 / 1090
--- NOTE | 2024-11-15 10:45 | CM ---
CM reviewed chart, patient seen bedside with daughter, discussed PT recommendation of home PT vs no needs. Daughter reports patient was close to being discharged with [facility] at [facility], would like to continue therapy once discharged back to
facility. Daughter reports patient has a rollator and shower chair, has been at [facility] since June. Patient for ACTH stim test 11/16. CM will continue to follow for all discharge planning needs.
Plan; return to [facility] with Jose PT
--- NOTE | 2024-11-15 11:43 | W.PN.CARDCBS ---
Addendum entered and electronically signed by Cheikh Aldrich MD 11/15/24 18:32:
Digoxin level was 1.3 but likely nonfasting, will repeat in AM. Also, outpatient dose of diltiazem CD was 120 mg once daily not twice daily, so I reduced the dose.
Addendum entered and electronically signed by Cheikh Aldrich MD 11/15/24 18:27:
89-year-old woman with permanent atrial fibrillation, hypertension, orthostasis with concomitant syncope, pancreatic mass being followed conservatively, GERD, hypothyroidism, mild cognitive impairment and diabetes, currently living at [facility]
and admitted with dyspnea with element of HFpEF and possible pneumonia, progression of mitral regurgitation compared to 2021 to moderate to severe
Current meds: Apixaban 5 mg twice daily, BuSpar 5 mg twice daily, colecalciferol, diltiazem SR 120 mg twice daily, Lexapro 10 mg a day, Robitussin 25 mg daily, Pepcid, levothyroxine, Zenpep, midodrine 5 mg 3 times daily, multivitamins, ceftriaxone
IV, azithromycin, Lantus, digoxin 125 mcg daily, furosemide 20 mg IV daily, not previously on furosemide
149/77, pulse 75, resp rate 16, afebrile, sats 93%, weight is 67.8 kg, had been 71 kg on admission, intake and output incomplete, pleasant, confused, does not recall my name despite numerous office visits. Lungs are clear, JVD is reasonable, some
edema, irregular rate and rhythm with mitral regurgitation murmur.
Potassium is 4.1, BUN/creatinine are 19 and 0.9
Plan:
She looks reasonably comfortable at present, but still is somewhat volume overloaded. Her moderate to severe MR is relatively new, duration however unknown.
Continue IV furosemide.
I called daughter Lyn, who is a pharmacist. We discussed whether or not to pursue her mitral regurgitation and agreed that given her age, cognitive status, other comorbidities that we would pursue a conservative course and not pursue MitraClip
or other interventions.
In regards to medical managements. Continue IV Lasix for now. We are agreed to add spironolactone 12.5 mg daily and also Farxiga 10 mg daily. Last case management to walsh. Mrs. Fitzgerald has not had frequent UTIs.
Further management to be based upon her clinical course.
Original Note:
Today's Communication / Plan
-
awaiting AM labs
IV lasix 20mg daily
follow BPs
PT/OT
Impression / Plan
-
Family Physician: Tejinder Rosenbaum MD
Certified Nurse Practitioner: Cheikh Aldrich
Impression:
Presented 11/13/2024 with weakness, dizziness, lightheadedness and shortness of breath
Pneumonia
Concern for acute HFpEF
Mod to severe MR
Abnormal troponin, peak 0.937, suspected nonischemic myocardial injury secondary to above
Permanent atrial fibrillation/flutter
Chronic anticoagulation on Eliquis
Hypertension
Orthostatic hypotension chronically on midodrine
History of syncope s/p [employer] Loop recorder/Linq monitor in 2021
Hypertriglyceridemia
Breast cancer status post lumpectomy radiation HRT with recurrence 11/08/2023
Pancreatic mass
Mild cognitive impairment
Type 2 diabetes
GERD
Hypothyroidism
Anxiety
Macular degeneration
History of MRSA infection
Echo 08/20/2021: LVEF 55% (Machado's), Mild septal hypertrophy, Diastolic function indeterminate due to atrial fibrillation. nl RV. nl LA. nl RA. Mildly thickened MV leaflets, Posterior MAC, Mild MR. Mild AR. Mild TR, PASP 30 mmHg. Trace [place] (poorly
visualized). nl aorta.
Lexiscan nuclear stress test 04/10/2020: Normal perfusion. EF 67%
Carotid duplex 10/08/21: no hemodynamically significant stenosis > 50% bilaterally, mild atherosclerotic plaque noted bilaterally
ECHO 11/14/24: EF 55 to 60%, mild concentric LVH, moderate to severe MR, aortic sclerosis without stenosis, mild AR, mild TR, PAP 45 to 50 mmHg, small pericardial effusion, pleural effusion present
Plan:
-Presented 11/13/2024 with weakness, dizziness, lightheadedness and general feeling of 'not feeling well.'
-Chest x-ray with concern for mild bibasilar pneumonia versus acute heart failure. Receiving antibiotics
-proBNP 2820. Received 20 mg IV Lasix last evening and again this morning, and she denies significant urine output however weight down overnight if accurate. Awaiting labs this morning. Does not appear grossly volume overloaded. Of note she does
have history of orthostatic hypotension and is chronically on midodrine 5 mg 3 times daily
-could consider candidacy for SGLT2 inhibitor. will assess cost to patient
-Troponin peaked at 0.937. Denies chest discomfort. Treating as nonischemic myocardial injury secondary to pneumonia/CHF. Consider for outpatient ischemic evaluation once recovered
-Echocardiogram remains with preserved EF, however with worsening of mitral regurgitation, now moderate to severe. Reviewed with patient and daughter at bedside 11/15. Will consider repeat echocardiogram post diuresis to reassess degree of MR. If
remains moderate to severe, would consider candidacy for MitraClip and evaluation as outpatient
-She has known permanent atrial fibrillation by Linq monitor. Continue outpatient diltiazem and digoxin. Dig level this admission was stable at 1.3. Continue anticoagulation with Eliquis.
-PT/OT evals
HPI 11/14/2024:
Patient is an 89-year-old female with history of permanent atrial fibrillation/flutter on chronic anticoagulation with Eliquis, hypertension, orthostatic hypotension chronically on midodrine, history of syncope, hypertriglyceridemia, breast cancer,
pancreatic mass, GERD, hypothyroidism, anxiety, type 2 diabetes and mild cognitive impairment who resides at [facility] presenting to emergency department 11/13/2024 with weakness, lightheadedness and complaint of 'feeling not well.'.
Patient also notes intermittent shortness of breath and worsening cough. Chest x-ray with bibasilar pneumonia and trace pleural effusions with WBC 12.3 and started on empiric antibiotics. EKG demonstrated atrial fibrillation with nonspecific ST-T
wave abnormality in anterior lateral leads. Initial troponin 0.687, peaked at 0.937. proBNP 2820. CRP 62.30. Cardiology being asked to see patient given abnormal troponin.
At time of this evaluation patient resting comfortably in bed. She offers no complaints. Currently denies chest pain, shortness of breath, dizziness, lightheadedness, orthopnea, PND
Progress Note - Certified Nurse Practitioner
Subjective
Date of Service: November 15, 2024
denies significant urine output overnight. no CP. reports some dizziness with ambulation, which she states is chronic
Objective
Labs:
11/14/24 06:49
Labs
Hgb 12.9 g/dL (12.0-16.0) 11/14/24 06:49
Hct 37.4 % (37.0-47.0) 11/14/24 06:49
Plt Count 274 10^3/uL (130-400) 11/14/24 06:49
PT 18.1 Sec (11.4-14.6) H 11/13/24 10:41
INR 1.47 11/13/24 10:41
APTT 39.1 Sec (23.4-35.0) H 11/13/24 10:41
Sodium 139 mmol/L (135-145) 11/14/24 06:49
Potassium 4.0 mmol/L (3.5-5.1) 11/14/24 06:49
BUN 20 mg/dl (7-17) H 11/14/24 06:49
Creatinine 0.8 mg/dL (0.6-1.0) 11/14/24 06:49
Glucose 160 mg/dl (70-99) H 11/14/24 06:49
Digoxin Cancelled 11/13/24 14:44
Troponins
11/13/24 11/13/24 11/13/24
10:41 14:27 18:08
Troponin I 0.687 H* 0.841 H* 0.937 H*
11/13/24 11/14/24
22:17 01:00
Troponin I 0.745 H* Cancelled
Vital Signs and I&O:
Vital Signs
Temp Pulse Resp BP Pulse Ox
98.1 F 75 16 149/77 93
11/15/24 07:30 11/15/24 07:30 11/15/24 07:30 11/15/24 07:30 11/15/24 07:30
Vital Signs
Temp Pulse Resp BP Pulse Ox
98.1 F 75 16 149/77 93
11/15/24 07:30 11/15/24 07:30 11/15/24 07:30 11/15/24 07:30 11/15/24 07:30
Intake & Output
11/13/24 11/14/24 11/15/24 11/16/24
07:59 07:59 07:59 07:59
Intake Total 480 / 480 1090 / 1090
Balance 480 / 480 1090 / 1090
Physical Exam
Physical Exam
GEN: No distress, awake, alert, oriented x3
HEENT: supple, anicteric, mmm, eomi
LUNGS: CTA B/L, no wheezes/rales
CV: Reg, S1/S2, 2/6 murmur
ABD: soft, BS+, NT/ND
EXT: No cyanosis, clubbing, edema
NEURO: Gross non-focal
SKIN: Warm, pink, dry. No rash
[2024-11-15] MEDS: TYLENOL 650 MG PO ×2 (11:52→15:50)
[2024-11-15 11:53] LABS: Glucose - Point of Care 168 mg/dl (70-99)
[2024-11-15 12:04] LABS: Blood Urea Nitrogen 19 mg/dl (7-17); Calcium 9.9 mg/dl (8.4-10.2); Carbon Dioxide 27 mmol/L (22-30); Chloride 100 mmol/L (98-107); Estimated Creatinine Clearance 39 ml/min; Glucose 212 mg/dl (70-99); Potassium 4.1 mmol/L (3.5-5.1); Sodium 136 mmol/L (135-145); eGFR > 60.00
[2024-11-15] MEDS: LANOXIN 125 MCG PO (12:19)
[2024-11-15 15:50] LABS: Glucose - Point of Care 166 mg/dl (70-99)
--- NOTE | 2024-11-15 16:06 | W.CARD.DEVCH ---
Cardiac Device Check
-
Device: Implanted Loop Recorder (ILR)
Supervisor Extruding Department: [employer]
The patient's device was interrogated with assistance of the device graphic art sales representative. The device had normal function. noted to have afib ~53% of time, however by previous interrogations this number has been felt to be grossly underestimated and
patient felt to have permanent afib. HR trends in afib appear to be more labile than they had been in the past. will follow on tele
--- NOTE | 2024-11-15 16:10 | DOWNTIME ---
There was a PositiveID Client Multi Operation Machine Operator Downtime on 11/15/2024 from 1230 to 11/15/2024 at 1550. Downtime documentation of patient's care, including medication administrations, has been reconciled in the electronic record per guidelines. Refer to the
patient's paper chart under the miscellaneous tab to see printed paper medication records and downtime forms.
--- NOTE | 2024-11-15 17:05 | PN.CDI ---
CDI
- -
CDI:
Physician Documentation Request
Admit Date: 11/13/24 15:31
Dear Doctor Yusef,
Please review the following and provide your response in the progress notes.
Clinical Indicators:
Pt admitted with PNA vs CHF
Documented per H&P, ' Elevated proBNP - acute HFpEF ? Prior LVEF 55 No prior HX CHF in the record...'
Progress notes 11/14 &11/15, ' Acute on chronic HFpEF exacerbation with EF of 55 to 60%...'
Cardiology consult and progress notes 11/15, ' Concern for acute HFpEF..'
Due to potentially conflicting documentation please specify the acuity of the documented HFpEF:
Acute HFpEF
Acute on Chronic HFpEF ( no change in documentation)
Other ( please specify)
Use of terms such as suspected, likely, concern for, or probable (associated with a specific diagnosis that is being evaluated, monitored, or treated as if it exists) are acceptable and can be coded in the inpatient setting, when documented at the
time of discharge.
Thank you,
Madiha Davis RN
CDI Specialist
[place] Text
Please use your independent medical judgment in providing your response.
[2024-11-15] MEDS: STERILE WATER FOR INJECTION 10 ML IV (17:40)
[2024-11-15] MEDS: ZITHROMAX INFUSION 250 IV (17:41)
[2024-11-15] MEDS: ROCEPHIN 1000 MG IV (17:41)
[2024-11-15] MEDS: PEPCID 20 MG PO (21:45)
[2024-11-15 22:16] LABS: Glucose - Point of Care 136 mg/dl (70-99)
[2024-11-16] MEDS: TYLENOL 650 MG PO (00:54)
[2024-11-16 03:26] VITALS: BP 163/83
[2024-11-16 03:36] VITALS: BP 149/75
[2024-11-16] MEDS: SYNTHROID 50 MCG PO (05:19)
[2024-11-16 05:51] VITALS: BMI 24.7
[2024-11-16 07:28] LABS: Glucose - Point of Care 138 mg/dl (70-99)
[2024-11-16 07:30] VITALS: BP 165/84
[2024-11-16 07:47] LABS: Hematocrit 37.4 % (37.0-47.0); Hemoglobin 12.7 g/dL (12.0-16.0); Mean Corpuscular Hgb 29.7 pg (27.0-31.0); Mean Corpuscular Volume 87.6 fL (81.0-99.0); Mean Platelet Volume 10.8 fL (7.4-10.4); Platelet Count 292 10^3/uL (130-400); Red Blood Cell Count 4.27 10^6/uL (4.20-5.40); Red Cell Dist. Width 13.2 % (11.5-14.5); White Blood Cell Count 8.6 10^3/uL (4.8-10.8)
[2024-11-16] MEDS: LANTUS 0.2 UNITS SC (07:52)
[2024-11-16] MEDS: LEXAPRO 10 MG PO (07:53)
[2024-11-16] MEDS: ProAmatine 5 MG PO ×3 (07:53→17:14)
[2024-11-16] MEDS: VITAMIN D3 (cholecalciferol) 25 MCG PO (07:53)
[2024-11-16] MEDS: ALDACTONE 12.5 MG PO (07:53)
[2024-11-16] MEDS: ELIQUIS 5 MG PO (07:53)
[2024-11-16] MEDS: CARDIZEM CD 120 MG PO (07:53)
[2024-11-16] MEDS: AROMASIN 25 MG PO (07:53)
[2024-11-16] MEDS: BUSPAR 5 MG PO (07:53)
[2024-11-16] MEDS: LASIX 20 MG IV (07:53)
[2024-11-16] MEDS: FARXIGA 10 MG PO (07:53)
[2024-11-16] MEDS: THERAGRAN 1 TABLET PO (07:53)
[2024-11-16] MEDS: ZENPEP DELAYED RELEASE CAPSULE 2 CAPSULE PO ×3 (07:55→15:28)
[2024-11-16] MEDS: NOVOLOG FLEXPEN-LOW RESISTANCE SC (07:57)
[2024-11-16 09:00] LABS: Blood Urea Nitrogen 17 mg/dl (7-17); Calcium 9.9 mg/dl (8.4-10.2); Carbon Dioxide 26 mmol/L (22-30); Chloride 103 mmol/L (98-107); Digoxin 0.5 ng/ml (0.8-2.0); Estimated Creatinine Clearance 44 ml/min; Glucose 129 mg/dl (70-99); Potassium 3.9 mmol/L (3.5-5.1); Sodium 139 mmol/L (135-145); eGFR > 60.00
[2024-11-16] MEDS: NSS (PRESERVATIVE FREE) IV (09:48)
[2024-11-16] MEDS: CORTROSYN IV (09:48)
[2024-11-16] MEDS: CORTROSYN 0.25 MG IV (10:46)
[2024-11-16] MEDS: NSS (PRESERVATIVE FREE) 1 ML IV (10:46)
[2024-11-16 11:00] LABS: ACTH Stim Cortisol 0 Min 13.6 ug/dl
[2024-11-16 11:29] VITALS: BP 125/76
[2024-11-16 11:46] LABS: Glucose - Point of Care 170 mg/dl (70-99)
[2024-11-16] MEDS: LANOXIN 125 MCG PO (11:55)
[2024-11-16] MEDS: NOVOLOG FLEXPEN-LOW RESISTANCE 1 UNITS SC ×2 (11:56→17:14)
[2024-11-16 12:44] LABS: ACTH Stim Cortisol 30 Min 33.6 ug/dl
[2024-11-16 12:58] LABS: ACTH Stim Cortisol 60 Min 44.2 ug/dl
--- NOTE | 2024-11-16 13:14 | CM ---
CM reviewed chart, patient seen bedside. Consult received for walsh check of Jardiance/Farxiga, 10 mg 30 day supply. Per patients prescription coverage- [employer], Jardiance- $602 (30 day supply), Farxiga- $574.02 (30 day supply). Call to
patients daughter, Lyn, agreeable to cost of Farxiga. Lyn reports she will provide transportation for patient back to [facility] when stable, will need script for PT/OT for Garcia therapy. CM will continue to follow for all discharge planning
needs.
Plan; return to [facility] with Garcia PT, will need script for PT/OT, daughter will transport home
--- NOTE | 2024-11-16 13:22 | W.PN.CARDCBS ---
Addendum entered and electronically signed by Cheikh Aldrich MD 11/16/24 14:15:
89-year-old woman with permanent atrial fibrillation, hypertension, orthostasis with concomitant syncope, pancreatic mass being followed conservatively, GERD, hypothyroidism, mild cognitive impairment and diabetes, currently living at [facility]
and admitted with dyspnea with element of HFpEF and possible pneumonia, progression of mitral regurgitation compared to 2021 to moderate to severe
Current meds: Apixaban 5 mg twice daily, BuSpar 5 mg twice daily, colecalciferol, diltiazem SR 120 mg twice daily, Lexapro 10 mg a day, Robitussin 25 mg daily, Pepcid, levothyroxine, Zenpep, midodrine 5 mg 3 times daily, multivitamins, ceftriaxone
IV, azithromycin, Lantus, digoxin 125 mcg daily, furosemide 20 mg IV daily, not previously on furosemide, dapagliflozin milligram today, spironolactone 12 5 mg daily
She is sitting in chair, currently feels well
125/76, pulse 77, respiratory rate 18, afebrile, weight is 67.3 mL, down one 0.5, down 3.6 kg since admission, head neck exam unremarkable, lungs are clear, irregular rate and rhythm reasonably controlled, mitral regurgitation murmur at apex, not
much edema
Hemoglobin 12.7, BUN/creatinine are 17 and 0.8, digoxin level is 0.5, potassium is 3.9
Impression:
See note below of Janay Byrnes. Agree with findings, assessments recommendations. Any modifications listed under plan
Plan:
She seems improved with regards to her acute HFpEF with presumed superimposed pneumonia.
I spoke with her daughter last night about her severe mitral regurgitation. We agreed that given her entire clinical picture that conservative strategy is best and we would not consider MitraClip, etc.
Daughter is a pharmacist, and we agreed to add spironolactone and Farxiga.
A trough digoxin level is ideal.
She is stable for discharge from a cardiac standpoint.
Recommended cardiac medications at discharge:
Furosemide 20 mg daily
Farxiga 10 mg daily
Spironolactone 12.5 mg daily
Diltiazem CD1 100 mg daily
Digoxin 125 mcg daily
Apixaban 5 mg twice daily
Midodrine 5 mg 3 times daily
Please get basic metabolic panel in 1 week
We will arrange for outpatient follow-up
Original Note:
Today's Communication / Plan
-
po lasix 20mg daily
BMP in 1 week
eliquis 5mg BID
midodrine 5mg TID
digoxin 125mcg daily
cardizem cd 120mg daily
farxiga 10mg daily
spironolactone 12.5mg daily
will arrange OP cardiac follow up
Impression / Plan
-
Family Physician: Tejinder Rosenbaum MD
Offal [employer] Poultry: Cheikh Aldrich
Impression:
Presented 11/13/2024 with weakness, dizziness, lightheadedness and shortness of breath
Pneumonia
Concern for acute HFpEF
Mod to severe MR
Abnormal troponin, peak 0.937, suspected nonischemic myocardial injury secondary to above
Permanent atrial fibrillation/flutter
Chronic anticoagulation on Eliquis
Hypertension
Orthostatic hypotension chronically on midodrine
History of syncope s/p Medtronic Loop recorder/Linq monitor in 2021
Hypertriglyceridemia
Breast cancer status post lumpectomy radiation HRT with recurrence 11/08/2023
Pancreatic mass
Mild cognitive impairment
Type 2 diabetes
GERD
Hypothyroidism
Anxiety
Macular degeneration
History of MRSA infection
Echo 08/20/2021: LVEF 55% (Machado's), Mild septal hypertrophy, Diastolic function indeterminate due to atrial fibrillation. nl RV. nl LA. nl RA. Mildly thickened MV leaflets, Posterior MAC, Mild MR. Mild AR. Mild TR, PASP 30 mmHg. Trace [place] (poorly
visualized). nl aorta.
Lexiscan nuclear stress test 04/10/2020: Normal perfusion. EF 67%
Carotid duplex 10/08/21: no hemodynamically significant stenosis > 50% bilaterally, mild atherosclerotic plaque noted bilaterally
ECHO 11/14/24: EF 55 to 60%, mild concentric LVH, moderate to severe MR, aortic sclerosis without stenosis, mild AR, mild TR, PAP 45 to 50 mmHg, small pericardial effusion, pleural effusion present
Plan:
-Presented 11/13/2024 with weakness, dizziness, lightheadedness and general feeling of 'not feeling well.'
-she is feeling much improved from admission
-reports SOB better post diuresis. will plan to transition to po lasix 20mg daily upon DC with BMP in 1 week. Cr stable at 0.8. weight 148 pounds on day of DC. follow daily weights as OP
-will need to follow volume status closely as also with orthostatic hypotension requiring midodrine 5mg TID.
-farxiga and spironolactone are new to patient this admission. EF preserved by echo this admission.
-Troponin peaked at 0.937. Denies chest discomfort. Treating as nonischemic myocardial injury secondary to pneumonia/CHF.
-Echocardiogram remains with preserved EF, however with worsening of mitral regurgitation, now moderate to severe. Reviewed with patient and daughter and plan at this time for conservative mgmt
-She has known permanent atrial fibrillation by Linq monitor. Continue outpatient diltiazem and digoxin. Dig level on admission was 1.3, repeat today 0.5. Continue anticoagulation with Eliquis.
-will arrange OP cardiac follow up
HPI 11/14/2024:
Patient is an 89-year-old female with history of permanent atrial fibrillation/flutter on chronic anticoagulation with Eliquis, hypertension, orthostatic hypotension chronically on midodrine, history of syncope, hypertriglyceridemia, breast cancer,
pancreatic mass, GERD, hypothyroidism, anxiety, type 2 diabetes and mild cognitive impairment who resides at [facility], [facility] presenting to emergency department 11/13/2024 with weakness, lightheadedness and complaint of 'feeling not well.'.
Patient also notes intermittent shortness of breath and worsening cough. Chest x-ray with bibasilar pneumonia and trace pleural effusions with WBC 12.3 and started on empiric antibiotics. EKG demonstrated atrial fibrillation with nonspecific ST-T
wave abnormality in anterior lateral leads. Initial troponin 0.687, peaked at 0.937. proBNP 2820. CRP 62.30. Cardiology being asked to see patient given abnormal troponin.
At time of this evaluation patient resting comfortably in bed. She offers no complaints. Currently denies chest pain, shortness of breath, dizziness, lightheadedness, orthopnea, PND
Progress Note - [employer]al [employer] P[employer]
Subjective
Date of Service: November 16, 2024
reports breathing is improved. states remains with some mild lightheadedness with ambulation
Objective
Labs:
11/16/24 06:50
11/16/24 06:50
Labs
Hgb 12.7 g/dL (12.0-16.0) 11/16/24 06:50
Hct 37.4 % (37.0-47.0) 11/16/24 06:50
Plt Count 292 10^3/uL (130-400) 11/16/24 06:50
PT 18.1 Sec (11.4-14.6) H 11/13/24 10:41
INR 1.47 11/13/24 10:41
APTT 39.1 Sec (23.4-35.0) H 11/13/24 10:41
Sodium 139 mmol/L (135-145) 11/16/24 06:50
Potassium 3.9 mmol/L (3.5-5.1) 11/16/24 06:50
BUN 17 mg/dl (7-17) 11/16/24 06:50
Creatinine 0.8 mg/dL (0.6-1.0) 11/16/24 06:50
Glucose 129 mg/dl (70-99) H 11/16/24 06:50
Digoxin 0.5 ng/ml (0.8-2.0) L 11/16/24 06:50
Troponins
11/13/24 11/13/2425
14:27 18:08 22:17
Troponin I 0.841 H* 0.937 H* 0.745 H*
11/14/24
01:00
Troponin I Cancelled
Vital Signs and I&O:
Vital Signs
Temp Pulse Resp BP Pulse Ox
97.7 F 95 18 125/76 98
11/16/24 11:29 11/16/24 11:55 11/16/24 11:29 11/16/24 11:29 11/16/24 11:29
Vital Signs
Temp Pulse Resp BP Pulse Ox
97.7 F 95 18 125/76 98
11/16/24 11:29 11/16/24 11:55 11/16/24 11:29 11/16/24 11:29 11/16/24 11:29
Intake & Output
11/14/24 11/15/24 11/16/24 11/17/24
07:59 07:59 07:59 07:59
Intake Total 480 / 480 1090 / 1090 670 / 670
Balance 480 / 480 1090 / 1090 670 / 670
Physical Exam
Physical Exam
GEN: No distress, awake, alert, oriented x3
HEENT: supple, anicteric, mmm, eomi
LUNGS: CTA B/L, no wheezes/rales
CV: Reg, S1/S2, 2/6 murmur
ABD: soft, BS+, NT/ND
EXT: No cyanosis, clubbing, edema
NEURO: Gross non-focal
SKIN: Warm, pink, dry. No rash
--- NOTE | 2024-11-16 13:56 | W.DS.TRANS ---
DC Summary - [facility] [employer] [facility]
-
Discharge Instructions:
Discharge Diagnosis/Procedures Acute CHF
Bibasilar pneumonia
Diet 2 Gram Sodium
Specialty Instructions Weigh Daily
Instructions: *DCA Heart Failure Instructions
Stand-Alone Forms:
Changes to Home Medications: Yes
Discharge Medications:
DC Medications w/original date entered in [facility]
levothyroxine 50 mcg tablet 50 mcg PO DAILY Thyroid 11/28/19
multivitamin with folic acid 400 mcg tablet (Tab-A-Mary) 1 tab PO DAILY Supplement 11/28/19
cholecalciferol (vitamin D3) 25 mcg (1,000 unit) tablet 2,000 units PO DAILY Supplement 05/01/21
apixaban 5 mg tablet (Eliquis) 5 mg PO BID #60 tabs 10/29/21
famotidine 40 mg tablet 40 mg PO HS Gastrointestinal Issue 10/29/21
acetaminophen 325 mg tablet (Tylenol) 650 mg PO Q6HPRN PRN mild pain 11/13/24
buspirone 5 mg tablet 5 mg PO BID Mental Health/Anxiety 11/13/24
digoxin 125 mcg (0.125 mg) tablet 125 mcg PO DAILY Heart Failure 11/13/24
escitalopram oxalate 10 mg tablet (Lexapro) 10 mg PO DAILY Depression 11/13/24
exemestane 25 mg tablet 25 mg PO DAILY Cancer 11/13/24
insulin detemir U-100 100 unit/mL (3 mL) subcutaneous pen 20 unit SC DAILY Diabetes 11/13/24
dlqxbq-pypmssif-rutovzq 36,000-114,000-180,000 unit capsule,delay rel (Creon) 2 cap PO AC Gastrointestinal Issue 11/13/24
otinfk-ywavwyuv-xtpozhi 36,000-114,000-180,000 unit capsule,delay rel (Creon) 2 cap PO DAILYPRN PRN with a snack 11/13/24
midodrine 5 mg tablet 5 mg PO TID Blood Pressure 11/13/24
dapagliflozin propanediol 10 mg tablet 10 mg PO DAILY #30 tabs 11/16/24
diltiazem HCl 120 mg capsule,extended release 12 hr 120 mg PO DAILY Blood Pressure #0 caps 11/16/24
doxycycline monohydrate 100 mg capsule 100 mg PO BID #10 caps 11/16/24
furosemide 20 mg tablet (Lasix) 20 mg PO DAILY #30 tabs 11/16/24
spironolactone 25 mg tablet 12.5 mg (1/2 x 25 mg) PO DAILY #30 tabs 11/16/24
Home Medication Changes
Aldactone, Lasix, Farxiga inititated
Pending Results: No
--- NOTE | 2024-11-16 15:01 | PN.CDI ---
CDI
- -
CDI:
Physician Documentation Request
Admit Date: 11/13/24 15:31
Dear Doctor ,
Please review the following and provide your response in the progress notes.
Clinical Indicators:
Pt admitted with PNA vs CHF
Documented per H&P, ' Elevated proBNP - acute HFpEF ? Prior LVEF 55 No prior HX CHF in the record...'
Progress notes 11/14 &11/15, ' Acute on chronic HFpEF exacerbation with EF of 55 to 60%...'
Cardiology consult and progress notes 11/15, ' Concern for acute HFpEF..'
Due to potentially conflicting documentation please specify the acuity of the documented HFpEF:
Acute HFpEF
Acute on Chronic HFpEF ( no change in documentation)
Other ( please specify)
Use of terms such as suspected, likely, concern for, or probable (associated with a specific diagnosis that is being evaluated, monitored, or treated as if it exists) are acceptable and can be coded in the inpatient setting, when documented at the
time of discharge.
Thank you,
Madiha Davis RN
CDI Specialist
Check Text
Please use your independent medical judgment in providing your response.
[2024-11-16] MEDS: ROCEPHIN 1000 MG IV (15:27)
[2024-11-16] MEDS: STERILE WATER FOR INJECTION 10 ML IV (15:28)
[2024-11-16 15:30] VITALS: BP 163/86
[2024-11-16 16:58] LABS: Glucose - Point of Care 176 mg/dl (70-99)
[2024-11-16] MEDS: ZITHROMAX INFUSION IV (17:15)
== END 2024-11-16 17:47 | disposition home or self-care (01) | DRG 177 ==
LOC: 4 WEST ACU 15:31
PROVIDERS: Hospitalist; Nurse Practitioner Family; Physician Assistant; ADMITTING PHYSICIAN Internal Medicine; ATTENDING PHYSICIAN Internal Medicine; CONSULT PHYSICIAN Internal Medicine Cardiovascular Disease; EMERGENCY PHYSICIAN Emergency Medicine; FAMILY PHYSICIAN Internal Medicine
DX: J69.0 Pneumonitis due to inhalation of food and vomit (principal); I50.33 Acute on chronic diastolic (congestive) heart failure; I48.21 Permanent atrial fibrillation; K86.1 Other chronic pancreatitis; F01.54 Vascular dementia, unspecified severity, with anxiety; I48.92 Unspecified atrial flutter; Z79.01 Long term (current) use of anticoagulants; Z79.4 Long term (current) use of insulin; E11.9 Type 2 diabetes mellitus without complications; I11.0 Hypertensive heart disease with heart failure; Z85.3 Personal history of malignant neoplasm of breast; Z92.3 Personal history of irradiation; K21.9 Gastro-esophageal reflux disease without esophagitis; F41.1 Generalized anxiety disorder; E03.9 Hypothyroidism, unspecified; I95.1 Orthostatic hypotension; I34.0 Nonrheumatic mitral (valve) insufficiency; Z66 Do not resuscitate; Z90.49 Acquired absence of other specified parts of digestive tract; Z96.653 Presence of artificial knee joint, bilateral; Z91.040 Latex allergy status; Z98.42 Cataract extraction status, left eye; Z98.41 Cataract extraction status, right eye; Z90.12 Acquired absence of left breast and nipple; E78.1 Pure hyperglyceridemia; Z86.14 Personal history of Methicillin resistant Staphylococcus aureus infection; Z82.3 Family history of stroke; I27.20 Pulmonary hypertension, unspecified; Z79.811 Long term (current) use of aromatase inhibitors; Z79.899 Other long term (current) drug therapy
CPT/HCPCS: 70450; 71046; 80048; 80053; 80061; 80162; 81003; 81015; 82533; 82962; 83036; 83605; 83735; 83880; 84443; 84484; 85025; 85027; 85610; 85730; 86140; 87040; 87070; 87086; 87154; 87205; 92610; 93005; 93306; 97116; 97163; 99285

== ENCOUNTER → 2024-12-06 08:11 | Outpatient (REF) | payer MEDICARE, BC, SELFPAY ==
[2024-12-06 08:57] LABS: % Basophils 1.6 % (0-2); % Eosinophils 2.6 % (0-6); % Immature Granulocytes 0.5 % (0-0.5); % Monocytes 7.7 % (1.7-9.3); % Neutrophils 64.6 % (42.2-75.2); Absolute Basophils 0.1 10^3/uL (0-0.2); Absolute Eosinophils 0.2 10^3/uL (0-0.7); Absolute Lymphocytes 1.8 10^3/uL (1.2-3.4); Absolute Monocytes 0.6 10^3/uL (0.1-0.6); Absolute Neutrophils 5.2 10^3/uL (1.4-6.5); Hematocrit 45.3 % (37.0-47.0); Hemoglobin 15.3 g/dL (12.0-16.0); Mean Corp Hgb Conc. 33.8 g/dL (33.0-37.0); Mean Corpuscular Hgb 29.4 pg (27.0-31.0); Mean Corpuscular Volume 87.1 fL (81.0-99.0); Mean Platelet Volume 10.2 fL (7.4-10.4); Nucleated Red Blood Cells % 0 %; Platelet Count 316 10^3/uL (130-400); Red Cell Dist. Width 13.2 % (11.5-14.5)
[2024-12-06 10:24] LABS: Microalbumin, Random Urine 38.7 mg/dl (0.6-1.7)
[2024-12-06 10:50] LABS: ALT (SGPT) 18 U/L (0-35); AST (SGOT) 25 U/L (14-36); Albumin 4.8 g/dl (3.5-5.0); Alkaline Phosphatase 79 U/L (38-126); Blood Urea Nitrogen 23 mg/dl (7-17); Calcium 10.4 mg/dl (8.4-10.2); Carbon Dioxide 26 mmol/L (22-30); Chloride 103 mmol/L (98-107); Glucose 205 mg/dl (70-99); HDL Cholesterol 45 mg/dl; LDL Cholesterol, Calculated 161 mg/dl; Potassium 4.8 mmol/L (3.5-5.1); Sodium 140 mmol/L (135-145); Total Bilirubin 0.8 mg/dl (0.2-1.3); Total Cholesterol 279 mg/dl (50-199); Total Protein 8.6 g/dl (6.3-8.2); Triglyceride 369 mg/dl (10-149); Very Low Density Lipoprotein 73 mg/dl (0-30); eGFR 43.54
[2024-12-06 12:10] LABS: Glycohemoglobin (HgbA1c) 7.3 % (4.0-5.6)
[2024-12-06 12:56] LABS: Folate > 20.0 ng/ml (2.76-20); Vitamin B12 757 pg/ml (239-931)
== END ==
LOC: REG 08:11
PROVIDERS: ATTENDING PHYSICIAN Internal Medicine; REFERRING PHYSICIAN Internal Medicine Cardiovascular Disease
DX: E11.9 Type 2 diabetes mellitus without complications (principal); I10 Essential (primary) hypertension; R53.82 Chronic fatigue, unspecified; R41.3 Other amnesia
CPT/HCPCS: 36415; 80053; 80061; 82043; 82570; 82607; 82746; 83036; 84443; 85025

== ENCOUNTER 2024-12-19 23:49 | Emergency (ER) | payer MEDICARE, BC, SELFPAY ==
[2024-12-19 23:59] VITALS: BP 144/75
--- NOTE | 2024-12-20 00:36 | ED.GENMED ---
History of Present Illness
General
Chief Complaint: Fall
Time Seen by Provider: 12/20/24 00:09
History of Present Illness
History of Present Illness:
89-year-old female history of atrial fibrillation on Eliquis, hypertension presenting with fall. Patient states that she was sitting on the edge of her bed and slid down. Patient states that she does not remember if she struck her head or not.
Patient states that she landed on her buttock. Patient denies neck pain, back pain, chest pain or extremity pain.
Past History
Past History
ED Past Medical History: Arrthythmia (Atrial fibrillation), Cancer (Breast), GERD, HTN and Other (Osteoarthritis, cataracts)
ED Past Surgical History: Cholecystectomy, Orthopedic and Tonsilectomy
Social History
Tobacco: Non-smoker
Alcohol: None
Personal:
Living: assisted living
Family History
Family History: Other (Noncontributory)
Phy Exam
Physical Exam
Physical Exam:
General: Alert, no acute distress
Head: NCAT
Eyes: clear conjunctiva
Neck: supple
Cardiac: regular rate and rhythm, no murmur
Lungs: clear to auscultation bilaterally. No wheezes, rales, or rhonchi. Speaking full unlabored sentences. No respiratory distress.
Abdomen: soft, nondistended nontender. No rebound or guarding.
MSK: no lower extremity edema bilaterally. No deformity. Full range of motion bilateral upper and lower extremities. No midline cervical/thoracic/lumbar tenderness to palpation
Skin: warm, dry
Neuro: Alert and oriented x3. no focal deficits. 5-5 strength bilateral lower extremities
Course
Orders/Labs/Results
Orders:
Orders
12/20/24 00:30
CT Cervical Spine W/o Iv Contr Urgent
Comment:
Reason For Exam: fall
CT Head W/o Iv Contrast Urgent
Comment:
Reason For Exam: fall head trauma
Vital Signs
Initial and Last Documented VS:
Initial Vital Signs
Pulse Resp BP Pulse Ox
78 18 144/75 98
12/19/24 23:59 12/19/24 23:59 12/19/24 23:59 12/19/24 23:59
Last Documented Vital Signs
Pulse Resp BP Pulse Ox
78 18 144/75 98
12/19/24 23:59 12/19/24 23:59 12/19/24 23:59 12/20/24 00:37
MDM/Problems Addressed
MDM/Problems Addressed:
Will obtain CT imaging given fall on layla, pt does not know if she struck her head.
CT head shows no hemorrhage or other evidence of trauma. Extensive sequela of chronic microvascular disease. Similar to prior imaging. CT cervical spine shows no acute osseous trauma. Degeneration. Vertebral body heights are intact.
Craniocervical junction is normal.
Discussed results with patient at bedside. Stable for discharge home with PCP follow-up
*Pulse Oximetry
SaO2: 98
Oxygen Mode of Delivery: Room air
Patient hypoxic: no
*Critical Care Note
Total Time (30-74mins, 75-104mins- exclusive of procedures): Not Applicable
ED Attending Note
-
Portions of this chart may have been created with voice recognition software.� Occasional wrong word or��sound alike� substitutions may have occurred due to the inherent limitations of voice recognition software.
Discharge Plan
Departure
Patient Disposition: Home (Routine Discharge)
Date of Disposition: 12/20/24
Time of Disposition: 03:56
Patient with high blood pressure during this ER visit?: Yes
Discharge Problem:
Fall
Instructions: BLOOD PRESSURE
Prescriptions:
No Action
levothyroxine 50 MCG tablet
50 mcg PO DAILY
multivitamin with folic acid [Tab-A-Mary] 1 TABLET tablet
1 tab PO DAILY
cholecalciferol (vitamin D3) 1,000 UNITS tablet
2,000 units PO DAILY
famotidine 40 MG tablet
40 mg PO HS
Eliquis 5 MG tablet
5 mg PO BID Qty: 60 1RF
Rx Instructions:
Resume Thurs am
buspirone 5 mg Tablet
5 mg PO BID
acetaminophen [Tylenol] 325 mg Tablet
650 mg PO Q6HPRN PRN (Reason: mild pain)
midodrine 5 mg Tablet
5 mg PO TID
exemestane 25 mg Tablet
25 mg PO DAILY
digoxin 125 mcg (0.125 mg) Tablet
125 mcg PO DAILY
escitalopram oxalate [Lexapro] 10 mg Tablet
10 mg PO DAILY
insulin detemir U-100 100 unit/mL (3 mL) Insulin Pen
20 unit SC DAILY
Creon 36,000-114,000- 180,000 unit Capsule,Delayed Release(Dr/Ec)
2 cap PO AC
Creon 36,000-114,000- 180,000 unit Capsule,Delayed Release(Dr/Ec)
2 cap PO DAILYPRN PRN (Reason: with a snack)
spironolactone 25 mg Tablet
12.5 mg PO DAILY Qty: 30 0RF
dapagliflozin propanediol 10 mg Tablet
10 mg PO DAILY Qty: 30 0RF
furosemide [Lasix] 20 mg tablet
20 mg PO DAILY Qty: 30 0RF
diltiazem HCl 120 mg Capsule,Extended Release 12 Hr
120 mg PO DAILY Qty: 0 0RF
doxycycline monohydrate 100 mg capsule
100 mg PO BID Qty: 10 0RF
Referrals:
UNKNOWN - PT DOES,NOT KNOW [Family Provider]
Activity Restrictions/Additional Instructions:
Follow-up with primary care doctor in 1 to 2 days
Continue taking medications as prescribed
Take Tylenol 975 mg every 6 hours as needed for pain
Return to the emergency department for fever or new/worsening symptoms
Interventions
Interventions:
*Risk Screen - Suicide Last Done: 12/20/24 00:01
*General Assessment Last Done: 12/20/24 00:05
*Neglect/Abuse Screening Last Done: 12/20/24 00:01
*ED- Fall Risk Assessment Last Done: 12/20/24 01:49
ED-Musculoskeletal Assessment Last Done: 12/20/24 00:04
ED- Neurological Assessment Last Done: 12/20/24 00:02
ED-Skin Assessment Last Done: 12/20/24 00:04
Discharge Date and Time
Print Language: SWEDISH
== END 2024-12-20 04:09 | disposition home or self-care (01) ==
LOC: EMR 23:49
PROVIDERS: EMERGENCY PHYSICIAN Emergency Medicine
DX: S09.90XA Unspecified injury of head, initial encounter (principal); W06.XXXA Fall from bed, initial encounter; I48.91 Unspecified atrial fibrillation; I10 Essential (primary) hypertension; K21.9 Gastro-esophageal reflux disease without esophagitis; M19.90 Unspecified osteoarthritis, unspecified site; Z79.01 Long term (current) use of anticoagulants; Z85.3 Personal history of malignant neoplasm of breast; Z90.49 Acquired absence of other specified parts of digestive tract
CPT/HCPCS: 99284; 70450; 72125

== ENCOUNTER → 2025-04-12 12:29 | Outpatient (REF) | payer MEDICARE, BC, SELFPAY ==
[2025-04-12 13:52] LABS: Blood Urea Nitrogen 26 mg/dl (7-17); Calcium 10.0 mg/dl (8.4-10.2); Carbon Dioxide 28 mmol/L (22-30); Chloride 102 mmol/L (98-107); Digoxin 0.9 ng/ml (0.8-2.0); Glucose 152 mg/dl (70-99); Potassium 4.6 mmol/L (3.5-5.1); Sodium 135 mmol/L (135-145); eGFR 48.33
== END ==
LOC: OLABMERCHI 12:29
PROVIDERS: ATTENDING PHYSICIAN Internal Medicine Cardiovascular Disease
DX: Z51.81 Encounter for therapeutic drug level monitoring (principal); Z13.6 Encounter for screening for cardiovascular disorders; I50.30 Unspecified diastolic (congestive) heart failure
CPT/HCPCS: 80048; 80162

== ENCOUNTER → 2025-05-09 08:17 | Outpatient (REF) | payer MEDICARE, BC, SELFPAY ==
[2025-05-09 10:02] LABS: ALT (SGPT) 22 U/L (0-35); AST (SGOT) 27 U/L (14-36); Albumin 4.7 g/dl (3.5-5.0); Alkaline Phosphatase 75 U/L (38-126); Blood Urea Nitrogen 21 mg/dl (7-17); Calcium 10.8 mg/dl (8.4-10.2); Carbon Dioxide 31 mmol/L (22-30); Chloride 96 mmol/L (98-107); Digoxin 1.5 ng/ml (0.8-2.0); Glucose 139 mg/dl (70-99); HDL Cholesterol 44 mg/dl; LDL Cholesterol, Calculated 126 mg/dl; Potassium 4.6 mmol/L (3.5-5.1); Sodium 135 mmol/L (135-145); Total Protein 8.3 g/dl (6.3-8.2); Very Low Density Lipoprotein 57 mg/dl (0-30); eGFR 48.33
[2025-05-09 10:29] LABS: Glycohemoglobin (HgbA1c) 7.9 % (4.0-5.9)
[2025-05-09 10:54] LABS: TSH 3.44 uIU/ml (0.47-4.68)
== END ==
LOC: REG 08:17
PROVIDERS: ATTENDING PHYSICIAN Internal Medicine; FAMILY PHYSICIAN Internal Medicine Cardiovascular Disease
DX: I48.21 Permanent atrial fibrillation (principal); I95.1 Orthostatic hypotension; E11.59 Type 2 diabetes mellitus with other circulatory complications; E03.9 Hypothyroidism, unspecified; E78.2 Mixed hyperlipidemia
CPT/HCPCS: 36415; 80053; 80061; 80162; 83036; 84443